=== PATIENT | male | born 1970 | race Caucasian/White ===

== ENCOUNTER → 2024-04-04 08:24 | Day surgery (SDC) | payer OTHER, SELFPAY ==
[2024-04-04] VITALS (10 sets, daily range): BP systolic 92–128; BP diastolic 56–76; BMI 35.9
[2024-04-04 08:54] LABS: Hematocrit 41.2 % (39.0-52.0); Hemoglobin 14.5 g/dL (13.0-18.0); Mean Corp Hgb Conc. 35.2 g/dL (33.0-37.0); Mean Corpuscular Hgb 30.9 pg (27.0-31.0); Mean Corpuscular Volume 87.7 fL (80.0-94.0); Mean Platelet Volume 8.7 fL (7.4-10.4); Platelet Count 250 10^3/uL (130-400); White Blood Cell Count 8.2 10^3/uL (4.8-10.8)
[2024-04-04] MEDS: LOW STRENGTH ASPIRIN 243 MG PO (08:56)
[2024-04-04] MEDS: NSS 336 ML IV (09:06)
[2024-04-04 09:13] LABS: ALT (SGPT) 24 U/L (0-50); AST (SGOT) 25 U/L (17-59); Albumin 4.3 g/dl (3.5-5.0); Alkaline Phosphatase 67 U/L (38-126); Blood Urea Nitrogen 17 mg/dl (9-20); Calcium 8.9 mg/dl (8.4-10.2); Carbon Dioxide 26 mmol/L (22-30); Chloride 105 mmol/L (98-107); Estimated Creatinine Clearance 103 ml/min; Glucose 93 mg/dl (70-99); Potassium 4.3 mmol/L (3.5-5.1); Sodium 142 mmol/L (135-145); eGFR > 60.00
[2024-04-04] MEDS: NSS 1000 IV (12:26)
--- NOTE | 2024-04-04 12:31 | ITS.CL.CATH ---
Operator Receptionist - Catheterization
Cardiac Catheterization
Procedure Report:
CARDIAC CATHETERIZATION REPORT
Date of Procedure: 04/04/2024
Referring: Drew Crawford DO
Indication: Angina with severe aortic stenosis
�
HEMODYNAMIC DATA
AO: 106/65
LV: 193/30
There is a mean gradient of 65 mmHg across the aortic valve
�
LEFT VENTRICULOGRAPHY: Normal segmental wall motion with EF 61%. There is severe calcification of the aortic valve and a strong suggestion of dilation of the ascending aorta with sparing of the aortic root
�
CORONARY ANGIOGRAPHY
Dominance: Right
Left Main: Normal
LAD: Short focal 80% mid LAD stenosis with otherwise trivial luminal irregularities
Circumflex: Normal
RCA: Normal
�
Closure Device: None-the procedure was performed via the right radial artery. The Marito's test was normal prior to the procedure.
�
Radiation (mGy): 295
DAP (cm2.Gy): 23.7
Fluoroscopy time: 4.8 minutes
�
CONCLUSIONS
1:�Critical aortic stenosis with mean gradient 65 mmHg
2:�Normal left ventricular function with EF 61%
3. Dilated ascending aorta�recommend CTA for sizing to determine whether replacement is needed at the time of AVR/CABG
4. Single-vessel CAD with 80% mid LAD stenosis
5. Cardiothoracic surgical consultation has been requested for AVR/CABG x 1 with possible ascending aorta replacement. He will have further discussion with the cardiac surgeon regarding valve choice. Given his young age I suggested he consider
mechanical AVR
�
�
Copy to: Drew Crawford DO, JHON Gaona
�
Mirza Quinones MD, [facility], [facility]
== END | disposition home or self-care (01) ==
LOC: CATH 08:24
PROVIDERS: ATTENDING PHYSICIAN Internal Medicine Cardiovascular Disease; CONSULT PHYSICIAN Thoracic Surgery (Cardiothoracic Vascular Surgery); OTHER PHYSICIAN Internal Medicine Cardiovascular Disease
DX: I35.0 Nonrheumatic aortic (valve) stenosis (principal); I25.119 Atherosclerotic heart disease of native coronary artery with unspecified angina pectoris; I70.0 Atherosclerosis of aorta; Z79.82 Long term (current) use of aspirin
CPT/HCPCS: 80053; 85027; 93458; C1894; Q9967

== ENCOUNTER → 2024-04-11 15:45 | Outpatient (REF) | payer OTHER, SELFPAY | LOC: RAD 15:45 | PROVIDERS: ATTENDING PHYSICIAN Thoracic Surgery (Cardiothoracic Vascular Surgery) | DX: I35.0 Nonrheumatic aortic (valve) stenosis (principal) | CPT/HCPCS: 71275; 74174; Q9967 ==

== ENCOUNTER 2024-04-18 05:00 | Inpatient (IN) | payer OTHER, SELFPAY ==
[2024-04-14 12:05] VITALS: BMI 37.1
[2024-04-14 12:42] LABS: % Basophils 0.8 % (0-2); % Eosinophils 1.7 % (0-6); % Immature Granulocytes 0.6 % (0-0.5); % Lymphocytes 24.5 % (20.5-51.1); % Monocytes 7.9 % (1.7-9.3); % Neutrophils 64.5 % (42.2-75.2); Absolute Basophils 0.1 10^3/uL (0-0.2); Absolute Eosinophils 0.1 10^3/uL (0-0.7); Absolute Immature Granulocytes 0.1 10^3/uL (0-0.05); Absolute Lymphocytes 1.9 10^3/uL (1.2-3.4); Absolute Monocytes 0.6 10^3/uL (0.1-0.6); Absolute Neutrophils 5.1 10^3/uL (1.4-6.5); Hematocrit 41.7 % (39.0-52.0); Hemoglobin 14.7 g/dL (13.0-18.0); Mean Corp Hgb Conc. 35.3 g/dL (33.0-37.0); Mean Corpuscular Hgb 30.9 pg (27.0-31.0); Mean Corpuscular Volume 87.8 fL (80.0-94.0); Mean Platelet Volume 9.1 fL (7.4-10.4); Nucleated Red Blood Cells % 0 % (-); Platelet Count 231 10^3/uL (130-400); Red Blood Cell Count 4.75 10^6/uL (4.70-6.10); White Blood Cell Count 7.9 10^3/uL (4.8-10.8)
[2024-04-14 12:43] LABS: Urine Albumin Negative (Neg - Trace); Urine Bilirubin Negative (Negative); Urine Character Clear (Clear); Urine Color Yellow; Urine Glucose Negative (Negative); Urine Ketone Negative (Negative); Urine Leukocyte Negative (Negative); Urine Nitrite Negative (Negative); Urine Occult Blood Negative (Negative); Urine Specific Gravity 1.015 (<1.030); Urine Urobilinogen 1+ (Neg - 1+)
[2024-04-14 13:16] LABS: ALT (SGPT) 29 U/L (0-50); AST (SGOT) 27 U/L (17-59); Albumin 4.1 g/dl (3.5-5.0); Alkaline Phosphatase 84 U/L (38-126); Blood Urea Nitrogen 17 mg/dl (9-20); Calcium 9.6 mg/dl (8.4-10.2); Carbon Dioxide 30 mmol/L (22-30); Chloride 105 mmol/L (98-107); Estimated Creatinine Clearance 91 ml/min; Glucose 99 mg/dl (70-99); Potassium 4.4 mmol/L (3.5-5.1); Sodium 144 mmol/L (135-145); Total Protein 6.6 g/dl (6.3-8.2); eGFR > 60.00
[2024-04-14 13:39] LABS: Glycohemoglobin (HgbA1c) 5.2 % (4.0-5.6)
--- NOTE | 2024-04-14 14:11 | CM ---
Met with and Mrs. Landis in [facility]'s. He states prior to admission he resides with his spouse in a two story home with two steps to enter. He states he has a full flight of steps to get to bedroom. He has a powder room on the second floor. His
full bathroom is on the first floor. He states prior to admission he was independent with ambulation and adls. He states he does not have any DME in the home. He states he has a prescription plan. His spouse states she will be home for the first
week to assist in his care if needed. The discharge plan is to return home with his spouse and a home visit by the Cardiothoracic Transitional Care Nurse when medically stable.
We reviewed pre-op and post-op routines. We reviewed the shower instructions. He has the soap and the written instructions. He already has The Cardiothoracic Surgery Educational Booklet . We also reviewed restrictions including sternal precautions
and driving restrictions. We discussed a home visit by the Cardiothoracic Transitional Care Nurse. He is agreeable to a home visit. The plan is for AVR/CABG on 04/18/24.
[2024-04-14 15:30] LABS: INR 0.95
[2024-04-14 15:42] LABS: APTT 26.5 Sec (23.4-35.0); PT 12.5 Sec (11.4-14.6)
[2024-04-18] VITALS (25 sets, daily range): BP systolic 94–133; BP diastolic 46–68; BMI 35.8
[2024-04-18] MEDS: LOPRESSOR 25 MG PO (05:33)
[2024-04-18] MEDS: BACTROBAN 2% OINTMENT 1 APPLIC NASAL ×2 (05:33→19:54)
[2024-04-18] MEDS: PROTONIX 40 MG PO (05:33)
[2024-04-18] MEDS: MAGNESIUM OXIDE 500 MG PO (05:34)
--- NOTE | 2024-04-18 06:00 | PTCARENOTE ---
Patient arrived to room 2266 with security guards dispatcher. Patient A+A+Ox3. No neurological deficits noted. Patient ambulates without difficulty. No c/o pain or discomfort. Patient confirmed taking 4% Chlorhexidine shower last night and this morning.
Patient confirmed NPO status. Patient clipped and prepped per protocol. CHG wipes. Second ABO collected and sent. Admission questions and medication reconciliation completed. Pre-Op medications administered. Use and purpose of Heart Pillow
explained. I.S. 4,000ml. Patient's at bedside. Dr. Darnell arrived to speak with patient. call person to CVOR.
--- NOTE | 2024-04-18 06:21 | W.CVOR.SURPR ---
CVOR Surgeon Immed Pre Op
-
I have examined this patient prior to performance of the scheduled procedure.
The patient's condition is unchanged from the time of the dictated/written History and
Physical and the patient is able to undergo the scheduled procedure.
Sternotomy AVR (Mechanical) + GRAY-LAD + PERLA Clip
[2024-04-18 07:35] LABS: ACT+ - POC 96 Seconds (82-134)
[2024-04-18 08:21] LABS: Urine Albumin Negative (Neg - Trace); Urine Bilirubin Negative (Negative); Urine Character Clear (Clear); Urine Color Yellow; Urine Glucose Negative (Negative); Urine Ketone Negative (Negative); Urine Leukocyte Negative (Negative); Urine Nitrite Negative (Negative); Urine Occult Blood Negative (Negative); Urine Urobilinogen Negative (Neg - 1+)
--- NOTE | 2024-04-18 08:38 | CM ---
Reviewed chart. Mr. Landis is in the operating room today. Prior to admission he resides with his spouse in a two story home with two steps to enter. He has a full flight of steps to get to his bedroom. He has a powder room on the first floor. He
has a full bathroom on the first floor. Prior to admission he was independent with ambulation and adls. He does not have any DME in the home. He has a prescription plan .His spouse will be home for the first week when he goes home to assist in his
care if needed. Medical work-up in progress. The discharge plan is return home with his spouse and a home visit [facility] the [facility] when medically stable.
[2024-04-18 09:40] LABS: Glucose - POC 102 mg/dl (70-99); HCO3 - POC 25 mmol/L (21-29); Hematocrit - POC 37 % PCV (42-52); Hemodilution- POC Yes; Hemoglobin Calculated - POC 12.5; Ionized Calcium - POC 1.16 mmol/L (1.12-1.27); PCO2 - POC 48 mmHg (35-45); PO2 - POC 431 mmHg (80-100); POC Comment PRE; Potassium - POC 4.3 mmol/L (3.6-5.0); Sodium - POC 141 mmol/L (135-145); pH - POC 7.33 (7.35-7.45)
[2024-04-18 10:11] LABS: B.E. - POC 3.1 mmol/L; Glucose - POC 123 mg/dl (70-99); HCO3 - POC 28 mmol/L (21-29); Hematocrit - POC 27 % PCV (42-52); Hemodilution- POC Yes; Hemoglobin Calculated - POC 9.1; Ionized Calcium - POC 0.96 mmol/L (1.12-1.27); O2 Saturation %Calculated-POC 99.9 % (92-96); PCO2 - POC 40 mmHg (35-45); PO2 - POC 340 mmHg (80-100); POC Comment CPB; Potassium - POC 6.5 mmol/L (3.6-5.0); Sodium - POC 137 mmol/L (135-145); pH - POC 7.44 (7.35-7.45)
[2024-04-18 10:26] LABS: ACT+ - POC 778 Seconds (82-134)
[2024-04-18 10:37] LABS: B.E. - POC 0.9 mmol/L; Glucose - POC 165 mg/dl (70-99); HCO3 - POC 25 mmol/L (21-29); Hematocrit - POC 31 % PCV (42-52); Hemodilution- POC Yes; Hemoglobin Calculated - POC 10.5; Ionized Calcium - POC 1.01 mmol/L (1.12-1.27); O2 Saturation %Calculated-POC 99.5 % (92-96); PCO2 - POC 36 mmHg (35-45); PO2 - POC 159 mmHg (80-100); POC Comment CPB; Potassium - POC 6.6 mmol/L (3.6-5.0); Sodium - POC 137 mmol/L (135-145); pH - POC 7.44 (7.35-7.45)
[2024-04-18 10:52] LABS: ACT+ - POC 805 Seconds (82-134)
[2024-04-18 11:10] LABS: B.E. - POC -0.6 mmol/L; Glucose - POC 149 mg/dl (70-99); HCO3 - POC 24 mmol/L (21-29); Hematocrit - POC 32 % PCV (42-52); Hemodilution- POC Yes; Ionized Calcium - POC 1.04 mmol/L (1.12-1.27); PCO2 - POC 38 mmHg (35-45); PO2 - POC 363 mmHg (80-100); POC Comment WARM; Potassium - POC 5.5 mmol/L (3.6-5.0); Sodium - POC 139 mmol/L (135-145); pH - POC 7.41 (7.35-7.45)
[2024-04-18 11:12] LABS: ACT+ - POC 104 Seconds (82-134)
[2024-04-18 11:45] LABS: B.E. - POC -2.3 mmol/L; Glucose - POC 124 mg/dl (70-99); HCO3 - POC 24 mmol/L (21-29); Hematocrit - POC 30 % PCV (42-52); Hemodilution- POC Yes; Ionized Calcium - POC 1.32 mmol/L (1.12-1.27); PCO2 - POC 49 mmHg (35-45); PO2 - POC 430 mmHg (80-100); POC Comment POSTH; Potassium - POC 4.6 mmol/L (3.6-5.0); Sodium - POC 141 mmol/L (135-145)
--- NOTE | 2024-04-18 11:46 | W.PN.UPDATE ---
Update Note
Progress Note Update
54-year-old male seen in the office by Dr. Darnell presented electively for a mechanical AVR and a CABG x 1.
IV fluids: 1100
U.O.:� 550
UF:� 1500
Blood:� None
Wires:� A+Ventricular
Inotropes:� None
Pressors:� Levo
Sedatives:� precedex
�
NEURO: sedated on Precedex, pupils +3mm B/L
RESP: #8OT @24cm>/60/5 Lungs clear B/L. 2 mediastinal (15cc on arrival) and R/L pleural (20cc on arrival) chest tubes to -20cm suction. Sanguineous drainage
CV: RRR +S1, S2, no S3, no�rub, no murmur. Dermabond to median sternotomy. RIJ w/[place] locked @ 46cm. PA 25/8 and CVP 4
ABD: round, soft, no BS
EXT: no edema, +2/4 DP pulses B/L, no femoral bruit, left radial A-line intact
: Harding with clear yellow urine
�
A/P: POD #0 s/p CABG x1 and Mechanical AVR #23mm
JADIEL: EF�nml
- wean and extubate
- Monitor CT and urine output
- Follow up labs and CXR
- Wean levophed for maps >65
- Will start ASA tonight
- EKG showed 1st degree AVB
- Eventual coumadin
- Cards consulted
- will need instruction regarding antibiotic prophylaxis for dental and invasive procedures
�
# acute surgical blood loss anemia-expected
- trend CBC
�
# Hyperlipidemia
- resume�statin when tolerating PO
--- NOTE | 2024-04-18 12:00 | PTCARENOTE ---
Received from CVOR at 1200, intubated and sedated; NSR on monitor; Epicardial AV wires present with temporary pacemaker settings VVI 50/9/3; DP and radial pulses present, trace edema noted; Lungs diminished at the bases; ETT size 8 positioned and
secured 24 @ right lip; Ventilator settings Volume A/C 12/550/5/5 FiO2 60%; mediastinal CTx4 to -20 cm wall suction with sanguinous drainage - no air leak, tidaling, or crepitus noted; hypoactive BS, abdomen obese; Harding catheter in place draining
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
--- NOTE | 2024-04-18 12:03 | W.PN.CT.SURG ---
CT Surgery Operative Note
-
CARDIAC SURGERY OPERATIVE REPORT
Preoperative Diagnosis: Bicuspid aortic valve morphology with severe stenosis and mild to moderate degree of insufficiency and single-vessel coronary disease involving the proximal to mid LAD
Postoperative Diagnosis: Same
Procedure(s) Performed:
1. Standard aortic and right atrial cannulation
2. Coronary artery bypass grafting x 1 (In situ GRAY to LAD)
3. Surgical aortic valve replacement with a 23 mm mechanical prosthesis
4. Left atrial appendage ligation [35 mm clip]
5. Placement of temporary atrial ventricular pacing wires
6. Trans-esophageal echocardiography
Date of Surgery: 04/18/24
Comorbidities:
1. Critical aortic valve stenosis with a mean gradient of 74 mmHg and velocity of over 5 m/s
2. Hyperlipidemia
3. Hypertension
4. Nephrolithiasis
5. Bicuspid aortic valve morphology, type 2
6. Morbidly obese with BMI greater than 30
7. Single-vessel coronary disease
Attending Surgeon: Cosme Darnell MD, MS
Assistants: Peace Joel PA-C (present and necessary to first aid officer, endoscopic vein harvest, retraction, suction, exposure, suture management, and wound closure under my direction)
Anesthesiology: Christopher Currie MD and Brendan Tuttle CRNA
Scrub and Circulating RNs: Melony Gayle RN, Logan Robbins RN
Daycare Manager: Amy De Leon CCP
Anesthesia: GETA
EBL: per perfusion records
Products: None, cell saver blood from the field
CPB Time: 100 minutes
Aortic Cross Clamp Time: 80 minutes
Indication(s) for Procedures: This is a 54-year-old male with critical severe aortic valve stenosis with a mean gradient 74 across his valve. He also had single-vessel coronary artery disease. He is symptomatic and so he was referred for surgical
aortic valve replacement with single-vessel coronary artery bypass grafting. Due to his young age, we discussed various types of valves. He ultimately shared decision making was to pursue a surgical aortic valve replacement with mechanical
prosthesis.
Aortic Valve Description: Heavily, heavily calcified leaflets with fusion of the left and right coronary cusp bicuspid valve, type II morphology. Left and right coronary ostia the normal anatomic positions. The calcification extended down to the
annulus particularly towards the noncoronary cusp into the mitral valve insertion point.
Conduit(s) Quality:
GRAY -excellent/skeletonized good visual flow in the LAD territory
Target(s) Quality:
LAD -good quality target/good visual flow in LAD territory upon removal of the bulldog clamp
Findings: LVEF on intraoperative JADIEL was 65% and 65% post procedure with no new regional wall motion abnormalities. He had moderately severe left ventricular hypertrophy pre and post surgery. His aortic valve was fused the left and right coronary
cusp fitting a type II morphology. He had heavy calcification that extended from the leaflet into the annulus. This required extensive debridement. The valve was replaced with a total of 16 nonpledgeted 2 Ethibond sutures placed in inverted
fashion from LVOT through annulus through sewing cuff. It was sized to a 23 mm mechanical prosthesis. This prosthesis was secured into place with core knots. The leaflets were oriented in anti anatomic fashion splitting the left and right
coronary ostia and relatively perpendicular to the anterior leaflet of the mitral valve. Left atrial appendage verified to be free of any thrombus or debris preoperatively and found to be totally occlusive postoperatively with 35 mm clip. There
was no prosthetic PVL or AI, just the inherent washing jets seen on the mechanical prosthesis. Mean gradient across the prosthesis was 11 mmHg. The GRAY was harvested in a skeletonized fashion.
Specimen(s): Aortic valve leaflet.
Prosthesis:
1. 23 mm On-X mechanical valve, serial number: [id number].
2. 35 mm clip, serial #[id number]
Description of Procedure: The patient was taken to the operating room. Their identity and procedure to be performed were verified and they were positioned supine on the operating table. Induction via general anesthesia with endotracheal intubation
was performed and central venous access and arterial monitoring were inserted. A preoperative transesophageal echocardiogram was performed. The patient was then prepped and draped from chin to feet in a sterile fashion. A preoperative time-out was
performed with all members of the team present. A midline chest incision was performed along with median sternotomy along with administration of an initial 5,000 units of IV heparin. A RulTract sternal retractor was positioned to exposure the left
internal mammary bed. The mammary was harvested in a skeletonized fashion and found to have good flow. A bulldog clamp was applied to the distal end of the mammary after dividing it. It was wrapped in a papaverine soaked RayTec and replaced back
into the left hemithorax. The RulTract was exchanged for a median sternal retractor. The innominate vein was isolated. Full heparinization was given (a total of 55,000 units). I created a pericardial well. The aortic cannulation site was chosen
where it was soft, pliable, and free of calcium. Cannulation was performed with an arterial cannula in the ascending aorta and a triple-stage venous cannula through the right atrial appendage. The arterial cannula line had an appropriate bounce and
correlating pressures with test dosing. Next, a root vent/antegrade cannula was inserted into the ascending aorta. The ACT was confirmed to be over 400 and retrograde autologous priming was performed before commencing cardiopulmonary bypass. A 20
LV vent was placed via the right superior pulmonary vein. The pulmonary artery was away from the aorta to facilitate a clamp site. The aortic cross-clamp was placed after decreasing the flow on the bypass and mean arterial pressure. A
total of 1.2L initial dose of antegrade and retrograde Del-Nido cardioplegia solution was given and planned for re-dosing every 75 minutes as necessary. There was rapid electro-mechanical arrest of the heart at 400 cc of cardioplegia. Following
this even of the heart was quiescent, there was still some reactivity with manipulation so an additional dose of retrograde with high potassium solution was given. The left ventricle was observed for distention on echocardiogram and manual
palpation. Cold slush was placed into a sponge and topically on the RV while we systemically cooled to 34 degrees centigrade. The heart was then gently medialized and the left atrial Penders was visualized and clipped accordingly.
I positioned the heart to expose the LAD. A suitable target on the mid/distal left anterior descending was identified. We dissected and prepared the distal target in a similar fashion. We retrieved the GRAY from the chest and created a pericardial
opening while being cognizant of the phrenic nerve to facilitate the course of the mammary. The distal end of the mammary was prepped and beveled to size. We verified orientation and length of the JEAN-PAUL and found brisk flow. An end-to-side anastomosis
was created with a 7-0 prolene. We temporarily released the bulldog clamp on the mammary to inspect flow. Perfusion to the LAD territory was visualized and hemostasis was confirmed. The bull clamp was replaced on the mammary.
Carbon dioxide was used to flood the field. I turned my attention to the aortic valve and manually identified the location of the right coronary take off. An aortotomy was made approximately 1.5cm above the sinotubular junction. The location of both
left and right coronary vessels were visualized in the root. The aortic valve was inspected and found to be heavily calcified. The leaflets were excised and sent for pathological assessment. The annulus was debrided of any calcium. The root and left
ventricular outflow tract were thoroughly irrigated to remove any debris. A total of 16, nonpledgeted 2-0 ethibond annular sutures were placed [id number] circumferentially. These were brought through the sewing cuff of the prosthetic valve which
as then parachuted into place. The left and right coronary ostia were visualized and were unobstructed by the valve. The mechanical leaflets of the valve was inspected using a plastic poker. The leaflets were able to move unobstructed A Cor-Knot
device was used to secure the annular sutures. The valve was inspected and was well seated. The aortotomy was approximated with 4-0 prolene in two layers. At the same time, we started to re-warm to 36.5 degrees centigrade. The bulldog clamp was
removed from the mammary and temporary bipolar ventricular pacing wires were placed on the base of the right ventricle as well as temporary atrial pacing wires at the SVC/RA junction. The patient was placed in a Trendelenburg position and flows on
bypass were lowered. The aortic cross clamp was removed and flows were slowly brought back up. The aortotomy appeared hemostatic. A 30-gauge needle was used to de-air the vein grafts. All bypass grafts were inspected and were free from kinking or
twisting. The distal and proximal anastomoses appeared hemostatic. De-airing maneuvers were performed. Transesophageal echocardiography revealed no paravalvular leak and appropriate prosthetic function. Once de-airing was satisfactory, the left
ventricular and root vents were removed. After verifying acceptable parameters, we initiated weaning from cardiopulmonary bypass. Once we were off cardiopulmonary bypass, the venous cannulas was clamped and removed. A test dose of protamine was
administered and the patient was monitored for any adverse reaction before resuming protamine. Once half of the protamine dose was delivered, pump suckers were turned off and the systolic blood pressure was lowered for aortic decannulation. The
aortic cannula was removed and pursestrings were tied down. All cannulation sites were oversewn with a 4-0 prolene. The aortic line, proximal, and distal coronary anastomoses were hemostatic. The mammary bed was inspected and hemostasis was
confirmed. Once the mediastinum was hemostatic, a 19Fr Epter drain was placed in the left and right pleural cavity and two 24Fr Peter drains were placed within the pericardium. The sternum was approximated with four #7 single and three #8 double
stainless steel wires. Fascia was approximated with #1 vicryl suture. The subcutaneous, dermis and epidermis were closed in layers in a running fashion. The skin wound was cleansed and dressed.
All instrument, sponge, and needle counts were confirmed to be correct x 2 at the end of the operation. The patient was transferred to the cardiac intensive care unit in critical but stable condition.
I, Dr. Cosme Darnell, was present, scrubbed for, and performed all critical elements of this procedure.
Cosme Darnell MD, MS
Cardiothoracic Surgeon
[facility]
This operative dictation was created using the [employer] dictation system. Please excuse any grammatical, typographical, or 'sound alike' errors
[2024-04-18 12:07] LABS: Glucose - Point of Care 107 mg/dl (70-99)
[2024-04-18 12:07] LABS: ACT+ - POC > 1003 Seconds (82-134)
[2024-04-18 12:07] LABS: ACT+ - POC > 1003 Seconds (82-134)
--- NOTE | 2024-04-18 12:10 | W.PN.CD ---
Addendum entered and electronically signed by Robert Lofton MD 04/18/24 15:16:
I saw and examined the patient.
The WEB APPLICATIONS ARCHITECT's note was reviewed and I agree with the note.
Comment: continue post-op care, extubation pending
Original Note:
Today's Communication / Plan
-
Follow telemetry
Postoperative management per CT surgery
Impression / Plan
-
BACKGROUND: 54M with single-vessel CAD and severe aortic stenosis who presents for AVR
Network Operations Center Engineer: Dr. Crawford
Severe aortic stenosis (bicuspid morphology) S/P AVR with 25 mm On-X mechanical valve by Dr. Darnell on 04/18/2024
CAD s/p CABG x 1 (in situ GRAY�LAD)
-LVEF 65% IntraOp, unchanged postoperative without RWMA
-Mean gradient 11 mmHg across prosthesis
-EKG with first-degree AV block
-Requiring low-dose Levophed at 4
-Stable on telemetry, follow
Dyslipidemia, LDL around 150 prior to initiation of atorvastatin
Obesity, BMI 35, he would benefit from weight loss
SUBJECTIVE:
Patient intubated and sedated. Operative notes reviewed.
Physical Exam
Vital Signs/Labs
Vital Signs
Temp Pulse Resp BP Pulse Ox
97.9 F 71 17 133/65 100
04/18/24 05:22 04/18/24 05:33 04/18/24 05:22 04/18/24 05:33 04/18/24 05:22
04/17/24 04/18/24 04/19/24
06:59 06:59 06:59
Actual Weight 111.4 kg
PT 12.5 Sec (11.4-14.6) 04/14/24 12:14
INR 0.95 04/14/24 12:14
APTT 26.5 Sec (23.4-35.0) 04/14/24 12:14
Physical Exam
Constitutional: No acute distress and Comfortable
EENT: Anicteric and Moist mucous membranes
Cardiovascular: Rhythm & rate is regular, Pedal edema is absent and Rub present
Respiratory: Lungs clear to auscul. and Other (Mechanical ventilation)
GI: Soft, Distention absent and Flat
Neuro/Psych: Other (Sedated)
Other: Skin (Warm and dry without edema)
Data Reviewed
-
Date of Service: April 18, 2024
EKG: Report Reviewed by me
Labs: Labs Reviewed by me
Old Records: Reviewed
[2024-04-18 12:16] LABS: B.E. -0.2 mmol/L; HCO3 25.9 mmol/L (21-28); PCO2 48 mmHg (35-48); PO2 154 mmHg (83-108); Potassium 4.3 mMOL/L (3.5-5.1); Sodium 139 mMOL/L (136-145); pH 7.34 (7.35-7.45)
[2024-04-18 12:19] LABS: Hematocrit 29.1 % (39.0-52.0); Hemoglobin 10.5 g/dL (13.0-18.0); Platelet Count 166 10^3/uL (130-400)
[2024-04-18 12:21] LABS: Mixed Venous O2 Saturation 71.5 %
[2024-04-18 12:25] LABS: APTT 27.5 Sec (23.4-35.0); INR 1.46; PT 17.6 Sec (11.4-14.6)
[2024-04-18 12:33] LABS: Blood Urea Nitrogen 19 mg/dl (9-20); Estimated Creatinine Clearance 102 ml/min; Glucose 107 mg/dl (70-99); Magnesium 2.8 mg/dl (1.6-2.3)
[2024-04-18] MEDS: ANCEF 10 IV ×2 (12:43→12:44)
[2024-04-18] MEDS: LIPITOR PO (12:44)
[2024-04-18] MEDS: NEURONTIN PO ×2 (12:44→15:52)
[2024-04-18] MEDS: NSS 500 IV (12:44)
--- NOTE | 2024-04-18 12:44 | CON.INTV ---
Consultation
Consultation Request
Date/Time Consultation Requested: 04/18/2024-12:30 PM
Date/Time Consultation Performed: 04/18/2024-12:30 PM
Requesting Provider: Dr. Darnell
Performing Provider: Dr. Alvarado
Reason for Consultation: Postoperative ventilator/critical care management
Medical History
-
Chief Complaint: Aortic stenosis and CAD
History of Present Illness:
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
04/18/2024. Patient is seen postoperatively intubated and sedated and review of systems was unobtainable. Operative records were reviewed. Case was reviewed with critical care nursing.
Past Medical History
Past Medical History: None (Obesity. Hyperlipidemia. Severe aortic stenosis. Nephrolithiasis. Scoliosis.)
Social History
Tobacco: Smoker (Occasional cigar)
Alcohol: Occasional
Personal:
Living: With Family
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
Occupational Exposures: No known asbestos exposure
Environmental Exposures: No known tuberculosis exposure
Family History
Family History: Other (Father-MVA 35 years old. Mother-diabetes, hypertension and hyperlipidemia.)
Allergies / Home Medications
Allergies
Allergy/AdvReac Type Severity Reaction Status Date / Time
No Known Allergies Allergy Verified 04/13/24 11:54
Home Medications
�Medication �Instructions �Recorded �Confirmed �Last Taken �Type
aspirin 81 mg chewable tablet 81 mg PO DAILY Blood Clot 04/04/24 04/18/24 04/17/24 08:00 History
Prevention/Tx 81 mg
atorvastatin 40 mg tablet 40 mg PO DAILY #90 tabs 04/04/24 04/18/24 04/17/24 08:00 Rx
40 mg
metoprolol succinate 25 mg 25 mg PO DAILY Heart 04/04/24 04/18/24 04/17/24 08:00 History
tablet,extended release 24 hr Disease/Condition 25 mg
nitroglycerin 0.4 mg sublingual 0.4 mg sublingual [id number] PRN 04/04/24 04/18/24 Unknown Rx
tablet chest pain #25 tabs
Review of Systems
-
Unable to Obtain full review of systems at this time due to: Other (Per HPI)
Vitals / Labs / Diagnostic Testing
Vital Signs
Temp Pulse Resp BP Pulse Ox
97.9 F 69 12 133/65 99
04/18/24 05:22 04/18/24 12:05 04/18/24 12:00 04/18/24 05:33 04/18/24 12:05
Lab Data
04/18/24 12:05
Laboratory Results
04/18/24
12:05
PT 17.6 H
INR 1.46
APTT 27.5
pH 7.34 L
pCO2 48
pO2 154 H
HCO3 25.9
O2 Delivery Level
Microbiology
04/14/24 12:14 Nose MRSA Screen - Final
No Methicillin Resistant Staphylococcus aureus isolated.
Diagnostic Testing:
Physical Exam
-
Exam:
Well-nourished and well-developed in no apparent distress
HEENT-atraumatic, normocephalic, oral tracheal intubation
Heart-regular rate and rhythm-no murmurs, rubs or gallops
Chest-clear to auscultation, no wheezes, crackles, median sternotomy bandage is not removed
Abdomen soft nondistended
Extremities-no cyanosis, clubbing, edema and good peripheral pulses
Integument-intact, no rashes, lesions or ecchymosis
Neurologically not alert, not oriented, not moving any of his extremities sedated on a ventilator
Assessment
-
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
04/18/2024.
CAD and severe aortic stenosis
Status post X 1-GRAY-LAD, AVR-23 mm mechanical prosthesis, left atrial appendage ligation
Anemia-hemoglobin 10.5
Mild hyperglycemia
Conditions present prior to admission:
Obesity.
Hyperlipidemia.
Severe aortic stenosis.
Nephrolithiasis.
Scoliosis.
Plan
Ventilator settings reviewed
FiO2 will be weaned
Minute ventilation will be adjusted
Arterial blood gases will be monitored
Spontaneous breathing trial will be attempted with hopeful extubation after anesthesia/sedation wear off
Pulmonary artery catheter parameters will be followed
Pressors/antihypertensive/inotropes/diuretics will be provided as needed
Monitor chest tube output
Monitor hemoglobin
Monitor platelet count and coags
Transfuse blood product if needed
CT surgery following chest tubes
Monitor blood sugar
Insulin drip per protocol
Smoking cessation counseling
Aspiration precautions
VAP prevention protocol
DVT prophylaxis
Early nutrition
Early mobilization
Patient at significant risk for obstructive sleep apnea-loud snoring, neck circumference, obesity, etc.-recommend outpatient sleep apnea/sleep disorders [id number] leave information
Critical care statement: A total of 50 minutes of critical care time was provided for this patient today. This includes management of ventilator, spontaneous breathing trial, arterial blood gases, pressors, of unstable vital signs, evaluation of the
patient at bedside, reviewing the patient's pertinent medical records including radiographs, microbiology, laboratory evaluations, and discussion with primary team and critical care nursing.
Diagnostic data:
Chest x-ray 04/18/2024-endotracheal tube tip above the segun, low lung volumes and probable mild basilar subsegmental atelectasis, no pneumothorax
CT chest abdomen and pelvis 04/11/2024-severe calcification of the aortic valve, contracted gallbladder, scoliosis
IntraOp JADIEL-EF 65%
Catheterization-cardiac 04/04/2024-critical aortic stenosis with mean gradient 65, EF 61%, single-vessel CAD with 80% mid LAD stenosis
Data Reviewed
-
EKG: Report reviewed by me
Radiology: Report reviewed by me
CT Scan: Report reviewed by me
Ultrasound: Report reviewed by me
Medical Tests (Nuc Med, Echo etc): Report reviewed by me
Labs: Labs reviewed by me
Old Records: Reviewed
Critical Care Time (in minutes): 50
[2024-04-18 13:05] LABS: Glucose - Point of Care 146 mg/dl (70-99)
[2024-04-18] MEDS: TYLENOL PO ×2 (13:42→20:39)
[2024-04-18 14:09] LABS: Glucose - Point of Care 146 mg/dl (70-99)
[2024-04-18] MEDS: ALBUMIN 5% 250 IV (14:43)
[2024-04-18 15:03] LABS: B.E. -2.1 mmol/L; HCO3 24.2 mmol/L (21-28); Ionized Calcium 1.16 mMOL/L (1.15-1.33); PCO2 47 mmHg (35-48); PO2 133 mmHg (83-108); Potassium 4.3 mMOL/L (3.5-5.1); pH 7.32 (7.35-7.45)
[2024-04-18 15:04] LABS: Glucose - Point of Care 107 mg/dl (70-99)
[2024-04-18] MEDS: PACERONE PO ×2 (15:52→21:58)
--- NOTE | 2024-04-18 15:57 | RESPNOTE ---
Patient extubated to 6L NC after weaning on 5/5 cpap wean for 30 minutes. No stridor on extubation. Patient able to verbalize name and clear secretions.
[2024-04-18 15:59] LABS: Glucose - Point of Care 125 mg/dl (70-99)
--- NOTE | 2024-04-18 16:00 | PTCARENOTE ---
Patient extubated without issues to 6LNC. No c/o pain presently. at bedside shortly after extubation, questions encouraged. Patient sleeping between care, AOx3 and calm. VSS.
[2024-04-18] MEDS: CALCIUM CHLORIDE 10% SYRINGE 50 ML IV (16:10)
[2024-04-18] MEDS: CALCIUM CHLORIDE 10% SYRINGE 50 MG IV (16:10)
[2024-04-18 16:17] LABS: Hematocrit 30.7 % (39.0-52.0); Hemoglobin 11.1 g/dL (13.0-18.0); Platelet Count 197 10^3/uL (130-400)
[2024-04-18] MEDS: DILAUDID IV (17:07)
[2024-04-18] MEDS: LOW STRENGTH ASPIRIN PO (17:07)
[2024-04-18] MEDS: ZOFRAN 4 MG IV (17:10)
[2024-04-18] MEDS: OFIRMEV 100 IV (17:18)
[2024-04-18 18:04] LABS: Glucose - Point of Care 110 mg/dl (70-99)
[2024-04-18] MEDS: LOW STRENGTH ASPIRIN 81 MG PO (18:04)
[2024-04-18] MEDS: REGLAN 10 MG IV (19:45)
[2024-04-18] MEDS: SODIUM BICARBONATE 50 MEQ IV (19:47)
[2024-04-18] MEDS: ANCEF 5 IV (19:49)
[2024-04-18] MEDS: SENOKOT-S 1 TABLET PO (19:53)
[2024-04-18] MEDS: CALCIUM GLUCONATE 100 IV (19:56)
--- NOTE | 2024-04-18 20:00 | PTCARENOTE ---
Care of patient continued. Ofirmev and Zofran administered around 1700. Calcium repleted. Patient had another episode of nausea around 194, shift leader PA made aware, Reglan ordered. Levophed infusion off for values WNL. Insulin continued per
glycemic protocol. Dilaudid given for 8/10 pain in chest/back. Plan of care discussed with patient and , in agreement. See worklist for details.
[2024-04-18 20:03] LABS: Glucose - Point of Care 127 mg/dl (70-99)
[2024-04-18] MEDS: DILAUDID 0.5 MG IV (20:09)
--- NOTE | 2024-04-18 20:15 | PTCARENOTE ---
Report received from Jane and La Nena, Rambo. Pt assessed. VS recorded. Pt awake, alert, oriented x 4. + Nausea and vomiting. PA made aware by ROBIN Lara. Reglan given per order of PA. Pt on 4L/NC. BBS present. Clear, decreased to B bases. Shallow
breathing at times due to pain. CT x 4, all to -20 cm suction. See flowsheets. Audible heart tones. + pericardial rub. + click from mechanical valve. Pt in SR 70's. AV wires present. VVI, backup rate 50, mA 9, sens 1.5. For pulse and wound
assessments, see flowsheets. CI 1.7. To give 1 amp Sodium bicarb and CaGluconate 2 GM per order of PA. Will continue to monitor CI. Belly soft, obese, nontender. Hypoactive bs x 4. Harding draining clear, yellow urine. Urine and CT output monitored q
1 hr. Glycemic protocol maintained. See VS flowsheet and I/O flowsheet for current gtts. Levo gtt at 2 mcg and titrated per protocol.
--- NOTE | 2024-04-18 21:34 | PTCARENOTE ---
Addendum entered by Jane Christensen RN 04/18/24 22:05:
Addendum, also notified provider of patient's CO/CI at this time, please see flow sheet for data.
Original Note:
Noted the patient's arterial line pressures 110's-120's systolic, systolic BP cuff pressures on RUE 10-12 mmHg lower than arterial line readings. Per night shift manager MAGALIS Lee, titrate BP medications per protocol based on cuff pressures at this time.
Levophed off since approx 1900, see worklist for details.
[2024-04-18] MEDS: NEURONTIN 100 MG PO (21:58)
[2024-04-18 22:01] LABS: Glucose - Point of Care 120 mg/dl (70-99)
[2024-04-19] VITALS (55 sets, daily range): BP systolic 108–149; BP diastolic 54–79; PULSE 82; O2SAT 93–96; BMI 36.0
[2024-04-19] MEDS: DILAUDID 0.5 MG IV ×2 (00:09→04:21)
[2024-04-19 00:29] LABS: Glucose - Point of Care 115 mg/dl (70-99)
--- NOTE | 2024-04-19 00:39 | PTCARENOTE ---
Dilaudid 0.5 mg IV given for 8/10 sternal pain after using IS. Glycemic protocol maintained. Accuchecks now q1 hr. CI done: 2.02. SVR 1147. Going by cuff BP per order of PA. Most recent cuff BP 117/54. Hourly UO and CT outputs recorded.
[2024-04-19] MEDS: DILAUDID 0.25 MG IV (02:20)
[2024-04-19] MEDS: ANCEF 5 IV ×2 (03:00→10:34)
[2024-04-19] MEDS: ROXICODONE 5 MG PO ×4 (03:40→20:47)
[2024-04-19 03:55] LABS: Glucose - Point of Care 108 mg/dl (70-99)
--- NOTE | 2024-04-19 04:00 | DOWNTIME ---
There was a [employer] Client Machinery Repair Maintenance Supervisor Downtime on 04/19/2024 from 0100 to 04/19/2024 at 0355. Downtime documentation of patient's care, including medication administrations, has been reconciled in the electronic record per guidelines. Refer to the
patient's paper chart under the miscellaneous tab to see printed paper medication records and downtime forms.
--- NOTE | 2024-04-19 04:03 | W.PN.INTV ---
Today's Communication / Plan
Recommendations
Tolerated extubation
Wean FiO2
Increase activity
Begin to d
Pressors weaned
If transferred to telemetry-dry cleaning checker will sign off-call pulmonary with respiratory issues
Outpatient sleep disorders evaluation-information will be left on chart at time of discharge for outpatient follow-up
Assessment
-
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
04/18/2024.
CAD and severe aortic stenosis
Status post X 1-GRAY-LAD, AVR-23 mm mechanical prosthesis, left atrial appendage ligation
Anemia-hemoglobin 10.5
Mild hyperglycemia
Conditions present prior to admission:
Obesity.
Hyperlipidemia.
Severe aortic stenosis.
Nephrolithiasis.
Scoliosis.
Plan
Tolerated extubation
Wean FiO2
Encourage incentive spirometry
Increase activity
Aspiration precautions
Pulmonary artery catheter and arterial line will be removed
Pressors have been weaned
Continue to monitor chest tube output
Follow hemoglobin
Continue to follow platelet count and coags
Transfuse blood product as needed
CT surgery following chest tubes as well
Follow blood sugar
Insulin supplementation continues as needed-would likely have insulin drip discontinued
Ongoing smoking cessation counseling
Early nutrition
Early mobilization
DVT prophylaxis
Patient with some snoring, feels tired all the time-recommend outpatient pulmonary/sleep disorders evaluation
Patient will be transferred to telemetry phase-call pulmonary if respiratory issues arise
Reviewed the patient's pertinent medical records including radiographs, microbiology, laboratory evaluations, and discussion with primary team, and critical care nursing.
Diagnostic data:
Chest x-ray 04/18/2024-endotracheal tube tip above the segun, low lung volumes and probable mild basilar subsegmental atelectasis, no pneumothorax
CT chest abdomen and pelvis 04/11/2024-severe calcification of the aortic valve, contracted gallbladder, scoliosis
IntraOp JADIEL-EF 65%
Catheterization-cardiac 04/04/2024-critical aortic stenosis with mean gradient 65, EF 61%, single-vessel CAD with 80% mid LAD stenosis
Subjective Dataa
Subjective Data
Date of Service:
Date of Service: April 19, 2024
Chief Complaint: Boiler Technician Follow Up, Pulmonary Follow Up and Vent Management Follow Up
Subjective:
Tolerated extubation, no complaints of shortness of breath, pain controlled, pressors weaned, chest tubes not dumping
Review of Systems
General: Other (Per HPI)
Objective Data
Data Reviewed
Vital Signs / I&O / Oxygen:
Vital Signs
Temp Pulse Resp BP Pulse Ox
98.1 F 79 12 117/54 98
04/19/24 00:34 04/19/24 00:34 04/19/24 00:34 04/19/24 00:34 04/19/24 00:34
Intake and Output
04/17/24 04/18/24 04/19/24
06:59 06:59 06:59
Intake Total 1379.6 / 1379.6
Output Total 1130 / 1130
Balance 249.6 / 249.6
SaO2 [CPAP/PSV] 99
SaO2 [A/C] 100
SaO2 98
Nasal Cannula flow liters per 4
minute
Physical Exam
General: Respiratory Distress (n) and Comfortable
HEENT: Normocephalic, Anicteric and Moist Mucous Membranes
Cardiovascular: Regular Rhythm
Respiratory: Wheeze (n), Crackles (n), Rhonchi (n), Non-Labored Respirations, Accessory Resp Muscle Use (n) and Stridor
GI: Soft, Non Distended and Non Tender
Neurology: Awake, Alert and No Motor Deficits
Skin: Warm, Good Color, Cyanosis (n), Jaundice (n) and Rash (n)
Labs/Micro/Reports
Laboratory Results
04/18/24 04/18/24
12:05 14:51
PT 17.6 H
INR 1.46
APTT 27.5
pH 7.34 L 7.32 L
pCO2 48 47
pO2 154 H 133 H
HCO3 25.9 24.2
O2 Delivery Level
--- NOTE | 2024-04-19 04:04 | W.PN.CT ---
Today's Communication / Plan
-
Plan:
-No major issues overnight. Hemodynamically and neurologically intact
-Successfully extubated on 04/18/24 @ 1600
-Weaned off Levophed gtt overnight, remains on insulin gtt per protocol
-Last CI 2.07, MVO2 69.3%, u/o since OR 940 mL
-D/C'd a-line and swan @ 0540
-D/C'd garcia catheter @ 0600
-Will transfer to [facility] phase today once of insulin
-Monitor chest tube drainage: 2med 175/330, R/L pleurals 40/180
-EKG c/w acute pericarditis (+rub), will administer Toradol 15 mg IV x 3. Will consider adding colchicine
-Cont. current meds (ASA, Plavix, Amiodarone, Lopressor if BP permits, Lipitor)
-Maintain cordis
-Maintain temporary PW (will pull likely tomorrow)
-Wean off of O2 as tolerated
-Encourage use of IS
-OOB into chair/Ambulate
Assessment / Plan
-
Assessment:
-S/p Sternotomy/CABG x 1 (In situ GRAY to LAD)/ AVR (23 mm mechanical prosthesis)/Left atrial appendage ligation [35 mm clip], by Dr. Darnell, 04/18/24, pod#1
-Severe critical
-Single vessel CAD (80% mid LAD)
-[place]
-LVEF 60%
-HTN
-HLD
-Class 2 obesity (BMI 37.1)
-Probable UVALDO, loud snoring
-Active tobacco abuse
-Nephrolithiasis
-OA
-Scoliosis/back pain
-DJD
-Acute postop blood loss/Anemia (stable without transfusion)
-Acute postop atelectasis
-Acute postop hypovolemia with subsequent hypervolemia
-Acute postop pericarditis (+rub)
Discussed patient care with: Cardiology, Nursing, Respiratory Therapy, Pharmacy and Care Team
Subjective
Procedure
-S/p Sternotomy/CABG x 1 (In situ GRAY to LAD)/ AVR (23 mm mechanical prosthesis)/Left atrial appendage ligation [35 mm clip], by Dr. Darnell, 04/18/24
-
Date of Service: April 19, 2024
Pt c/o incisional pain, otherwise feels well
Objective Data
-
PT 17.6 Sec (11.4-14.6) H 04/18/24 12:05
INR 1.46 04/18/24 12:05
APTT 27.5 Sec (23.4-35.0) 04/18/24 12:05
Vital Signs
Vital Signs
Temp Pulse Resp BP Pulse Ox
98.1 F 79 12 117/54 98
04/19/24 00:34 04/19/24 00:34 04/19/24 00:34 04/19/24 00:34 04/19/24 00:34
CT Intake/Output/Weight
04/18/24 04/18/24 04/19/24
06:59 18:59 06:59
Intake Total 888.3 / 1379.6 491.3 / 1379.6
Output Total 750 / 1130 380 / 1130
Balance 138.3 / 249.6 111.3 / 249.6
SaO2: 98 (2L)
Physical Exam
-
General: Awake, Oriented and AOx3
Cardiovascular: Regular rate & rhythm, No Murmurs, Rub and No Gallop
Respiratory: Decreased Breath Sounds (at bases, otherwise clear)
Sternum: Stable
Incision: Clean, Dry, Intact and Dressing Intact
Extremities: Other (+trace edema)
Data Reviewed
-
Lab Results: Results Reviewed
Medications: Active Meds Reviewed
Chest X-Ray: Report Reviewed and Image Reviewed
ECG: Report Reviewed and Image Reviewed
[2024-04-19 04:29] LABS: Mixed Venous O2 Saturation 69.3 %
[2024-04-19 04:36] LABS: INR 1.09; PT 13.9 Sec (11.4-14.6)
[2024-04-19 04:39] LABS: Hematocrit 29.7 % (39.0-52.0); Hemoglobin 10.5 g/dL (13.0-18.0); Mean Corp Hgb Conc. 35.4 g/dL (33.0-37.0); Mean Corpuscular Volume 87.6 fL (80.0-94.0); Mean Platelet Volume 9.2 fL (7.4-10.4); Platelet Count 195 10^3/uL (130-400); Red Blood Cell Count 3.39 10^6/uL (4.70-6.10); Red Cell Dist. Width 13.2 % (11.5-14.5); White Blood Cell Count 13.8 10^3/uL (4.8-10.8)
[2024-04-19 04:59] LABS: Blood Urea Nitrogen 23 mg/dl (9-20); Carbon Dioxide 26 mmol/L (22-30); Chloride 107 mmol/L (98-107); Estimated Creatinine Clearance 102 ml/min; Glucose 105 mg/dl (70-99); Magnesium 2.1 mg/dl (1.6-2.3); Potassium 4.6 mmol/L (3.5-5.1); Sodium 143 mmol/L (135-145); eGFR > 60.00
[2024-04-19] MEDS: TORADOL 15 MG IV ×2 (05:32→14:13)
[2024-04-19] MEDS: TYLENOL 1000 MG PO ×3 (05:33→22:20)
--- NOTE | 2024-04-19 06:30 | PTCARENOTE ---
Labs, EKG, CXR done this am. See MAR for pain medication given. CI > 2.0 overnight. MVO2 ~69. PA aware of all hemodynamics, outputs. Orders given to deline pt. Pt Leonard d/c'ed, L radial A line d/c'ed per CVICU protocol. Indwelling urinary catheter
d/c'ed at 0605. Pt assisted up to standing scale to be weighed then to recliner chair. Pt normotensive throughout transfer to scale and chair.
[2024-04-19 06:40] LABS: Glucose - Point of Care 126 mg/dl (70-99)
[2024-04-19 06:40] LABS: Glucose - Point of Care 117 mg/dl (70-99)
[2024-04-19] MEDS: ZOFRAN 4 MG IV (07:21)
[2024-04-19 08:18] LABS: Glucose - Point of Care 107 mg/dl (70-99)
[2024-04-19 08:20] LABS: Glucose - Point of Care 114 mg/dl (70-99)
[2024-04-19 08:20] LABS: Glucose - Point of Care 115 mg/dl (70-99)
--- NOTE | 2024-04-19 08:30 | PTCARENOTE ---
received pt from shift superintendent nurse. pt resting in chair during time of assessment. pt AAOx3, NSR per tele HR 80s, A/V wires set to VVI 50 9 1.5, +rub & click auscultated, palpable pulses, b/l trace edema, pox 97% 4L NC, CT x4 serosanguineous
drainage, no air leak/ crepitus, hypoactive bs, pt complaining of nausea, zofran given, dtv post garcia removal, sternal incision approx., [place], CT c/d/i, L rad wrist 4x4 c/d/i, RIJ cordis infusing KVO, piv infusing insulin per protocol, plan of care
discussed and questions encouraged.
--- NOTE | 2024-04-19 08:52 | W.PN.CD ---
Today's Communication / Plan
-
- Supportive post op care.
- PO meds including ASA, Plavix, AMiodarone and Lipitor.
- Required Levophed until last night - probably can start Metoprolol from tomorrow.
- Colchicine for pericarditis.
Impression / Plan
-
BACKGROUND: 54M with single-vessel CAD and severe aortic stenosis who presents for AVR
Clipper Machine: Dr. Crawford
Severe aortic stenosis (bicuspid morphology) S/P AVR with 25 mm On-X mechanical valve by Dr. Darnell on 04/18/2024
CAD s/p CABG x 1 (in situ GRAY�LAD)
-LVEF 65% IntraOp, unchanged postoperative without RWMA
-AVR - Mean gradient 11 mmHg across prosthesis
-EKG with first-degree AV block and pos top pericarditis
-Colchicine and NSAIDS as tolerated.
-Off the Levophed now
-Extubated on 04/18
-Stable on telemetry, follow
- OOB to chair
- Chest tubes / Mediastinal tubes with decreasing output.
- Temp pacing wires in place. no sign of pacing need.
Dyslipidemia, LDL around 150 prior to initiation of atorvastatin
Obesity, BMI 35, he would benefit from weight loss
SUBJECTIVE:
Extubated and doing well post op. OOB to chair. Off pressors.
Physical Exam
Vital Signs/Labs
Vital Signs
Temp Pulse Resp BP Pulse Ox
98.3 F 82 16 148/68 98
04/19/24 08:00 04/19/24 07:45 04/19/24 08:00 04/19/24 08:00 04/19/24 08:23
04/18/24 04/19/24 04/20/24
06:59 06:59 06:59
Actual Weight 111.4 kg 112.3 kg
04/19/24 08:15
04/19/24 04:13
PT 13.9 Sec (11.4-14.6) 04/19/24 04:13
INR 1.09 04/19/24 04:13
APTT Cancelled 04/19/24 08:15
Magnesium 2.1 mg/dl (1.6-2.3) 04/19/24 04:13
Physical Exam
Constitutional: No acute distress and Comfortable
EENT: Anicteric and Moist mucous membranes
Cardiovascular: Rhythm & rate is regular, Pedal edema is absent and JVD present
Respiratory: Respiratory effort normal, Lungs clear to auscul. and Crackles Absent
GI: Soft, Distention absent, Non tender and Normal bowel sounds
Neuro/Psych: Alert, Oriented and AO x 3
Data Reviewed
-
Date of Service: April 19, 2024
Medical Decision Making: Reviewed Test Results, Independent Historian Assessment, Test Interpretation and Review of Case with other Provider
EKG: Tracing Personally Visualized and interpreted
Echo: Report Reviewed by me
X-Ray/CT/US/MRI/NUC/PET: Image Personally Visualized and interpreted
Labs: Labs Reviewed by me
Old Records: Reviewed
Critical Care Time (in minutes): 32
[2024-04-19] MEDS: BACTROBAN 2% OINTMENT 1 APPLIC NASAL ×2 (09:25→20:45)
[2024-04-19] MEDS: PACERONE 200 MG PO ×3 (09:26→22:20)
[2024-04-19] MEDS: PLAVIX 75 MG PO (09:26)
[2024-04-19] MEDS: COLCHICINE 0.3 MG PO (09:26)
[2024-04-19] MEDS: MAGNESIUM OXIDE 500 MG PO ×2 (09:26→20:46)
[2024-04-19] MEDS: PROTONIX 40 MG PO (09:27)
[2024-04-19] MEDS: LIDOCAINE 4% PATCH TOPICAL (09:27)
[2024-04-19] MEDS: NEURONTIN 100 MG PO ×3 (09:27→22:20)
[2024-04-19] MEDS: LOW STRENGTH ASPIRIN 81 MG PO (09:27)
[2024-04-19] MEDS: SENOKOT-S 1 TABLET PO ×2 (09:27→20:46)
[2024-04-19] MEDS: LOPRESSOR 12.5 MG PO ×2 (09:27→20:45)
[2024-04-19] MEDS: LIPITOR 40 MG PO (09:27)
[2024-04-19 09:28] LABS: APTT 26.4 Sec (23.4-35.0)
[2024-04-19] MEDS: FLEXERIL 5 MG PO ×2 (09:33→20:46)
[2024-04-19 10:10] LABS: Glucose - Point of Care 140 mg/dl (70-99)
[2024-04-19] MEDS: HEPARIN 25000 UNITS/250 ML IV (10:34)
[2024-04-19 12:10] LABS: Glucose - Point of Care 124 mg/dl (70-99)
[2024-04-19] MEDS: NSS IV (12:36)
--- NOTE | 2024-04-19 12:45 | PTCARENOTE ---
pt VSS, pt oriented, SR on the monitor. HR 70-80s. A&V wires, VVI 50/9. +click, +rub. SBP 110-130s. palpable pulses. pt on RA, 94% POX. lungs diminished. IS encouraged. CTx4, no air leak or crepitus noted. pt placed back to bed, L pleural CT dc'd as
ordered w/ no issue. unable to dc R pleural CT d/ t resistance, PRODUCTION DEPARTMENT SUPERVISOR and Dr. Darnell at bedside to remove, dressing c/d/i. diet tolerated. denies n/v. sternal incision TRISTON, approximated. L radial site c/d/i. RIJ cordis maintained. PIV. insulin gtt dc'd.
heparin gtt on hold per PRODUCTION DEPARTMENT SUPERVISOR. see worklist for VS, I&O, and assessment.
--- NOTE | 2024-04-19 13:34 | W.PN.ANS.POP ---
Anesthesia Post Operative
- Anesthesia Post Op Note
Vital Signs Stable-See Nursing Note: Yes
Airway Patent: Yes
Adequate Pain Control: Yes
Change in Mental Status: No
Current Postoperative Nausea & Vomiting: No
Anesthesia Complications: No
General Anesthetic Recall: No
Unplanned Admission: No
Post Op Hydration Adequate: Yes
[2024-04-19] MEDS: FERRLECIT 110 MG IV (14:14)
--- NOTE | 2024-04-19 14:25 | CM ---
Reviewed chart, Met with Mr. Landis to review discharge plans. He states he is feeling tired. Prior to admission he resides with his spouse in a two story home with two steps to enter. He has a full flight of steps to get to bedroom and powder
room. He full bathroom is on the first floor. Prior to admission he was independent with ambulation and adls. He does not have any DME in the home. His spouse will be home for the first week to assist in is care if needed. Medical work-up in
progress. The discharge plan is to return home with her spouse and a home visit by the Transitional Care Nurse when medically stable.
--- NOTE | 2024-04-19 16:00 | PTCARENOTE ---
pt VSS, no changes in assessment. pt OOB in chair. IS encouraged. family at bedside. STRUCTURAL ARCHITECT aware of positional RIJ cordis.
[2024-04-19 16:35] LABS: APTT 30.9 Sec (23.4-35.0)
--- NOTE | 2024-04-19 17:04 | W.PN.UPDATE ---
Update Note
Progress Note Update
Patient has not required pacing wires. There has been no bradycardia, arrhythmias, complete heart block, or significant pauses.
Site was cleansed with CHG thoroughly
1 atrial and 1 ventricular epicardial pacing wires were pulled.. Bedrest x1 hour and VS [id number] x 4.
Carisa FERREIRA
Cardiac Surgery
--- NOTE | 2024-04-19 17:06 | PTCARENOTE ---
SERVICE MEMBER aware of PTT, SERVICE MEMBER at bedside, A&V wires pulled by SERVICE MEMBER. q15 VSS completed.
--- NOTE | 2024-04-19 20:45 | PTCARENOTE ---
Report received from ROBIN Lacy. Walking rounds done. VS done. Pt helped back to bed per request. Awake, alert, oriented x 4. Speech clear. Equal extremity strength x 4. Pt on 2L/NC on chair. In bed, Sats 91% on 2L/NC. O2 increased to 4L/NC. Pt c/o
moderate pain to sternum. Flexeril 5 mg and Roxicodone 5 mg given at 2045 for pain. CDB and IS encouraged. IS peak 1000 mls. Audible heart tones. + click and + pericardial rub auscultated. Mediastinal CTs x 2 to -20 cm suction, draining red SSG
drainage. For pulse and wound assessments, see flowsheets. SBP 140's. Scheduled metoprolol and pain medications given. Ongoing monitoring of BP. Pt in SR. Belly soft, obese. Normoactive bs x 4. Reports passing some flatus. Voids clear, yellow urine
in urinal. Pt given CHG bath. Gown and linens changed. at bedside. MAGALIS Gage at bedside to examine pt. Ongoing plan of care for pt.
[2024-04-19] MEDS: XANAX 0.25 MG PO (22:42)
[2024-04-19] MEDS: OCEAN, SALINE MIST 2 SPRAYS NASAL (22:51)
--- NOTE | 2024-04-19 23:02 | PTCARENOTE ---
Pt called to RN stating he feels increased anxiety. He feels his nasal mucosa is dry and also feels he is unable to swallow. Pt requested his nasal cannula to be temporarily out. Pt helped up to standing, voided 125 mls clear, yellow urine, then
helped to recliner chair. MAGALIS Gage at bedside. Xanax 0.25 mg po given at 2242 for anxiety. Pt states he has had Xanax in the past for episodes of anxiety. Saline nasal spray provided for pt. Pt pregers to remain in recliner chair for now. Pt
allowed RN to place O2 cannula back into nares. Sats 94-95% on 4L/NC in chair. Remains in SR, 70's. Reports sternal pain mild, 3/10. Ongoing plan of care.
[2024-04-20] VITALS (10 sets, daily range): BP systolic 115–146; BP diastolic 52–69; PULSE 79; O2SAT 94–95; BMI 36.2
[2024-04-20] MEDS: ROXICODONE 5 MG PO ×3 (03:56→21:54)
--- NOTE | 2024-04-20 04:00 | PTCARENOTE ---
Labs drawn and sent. Pt helped to standing to void 225 mls clear, yellow urine in urinal. Pt then weighed on standing scale. Pt assisted back to bed. VS done and recorded. Roxicodone 5 mg po given for 7.10 sternal pain.
[2024-04-20 04:31] LABS: Hematocrit 25.6 % (39.0-52.0); Hemoglobin 8.8 g/dL (13.0-18.0); Mean Corp Hgb Conc. 34.4 g/dL (33.0-37.0); Mean Corpuscular Hgb 30.2 pg (27.0-31.0); Mean Platelet Volume 9.6 fL (7.4-10.4); Platelet Count 180 10^3/uL (130-400); Red Blood Cell Count 2.91 10^6/uL (4.70-6.10); Red Cell Dist. Width 13.4 % (11.5-14.5); White Blood Cell Count 14.3 10^3/uL (4.8-10.8)
[2024-04-20 05:02] LABS: Blood Urea Nitrogen 35 mg/dl (9-20); Calcium 8.3 mg/dl (8.4-10.2); Carbon Dioxide 28 mmol/L (22-30); Chloride 102 mmol/L (98-107); Estimated Creatinine Clearance 94 ml/min; Glucose 127 mg/dl (70-99); Magnesium 2.3 mg/dl (1.6-2.3); Potassium 4.6 mmol/L (3.5-5.1); Sodium 139 mmol/L (135-145); eGFR > 60.00
[2024-04-20] MEDS: TYLENOL 1000 MG PO ×3 (06:29→19:56)
--- NOTE | 2024-04-20 06:50 | W.PN.CT ---
Today's Communication / Plan
-
-pod #2
-had anxiety/ panic attack last night- better after Xanax. No other issues, no complaints
-CT output: 2 meds: 120/305 in 12/24 hrs
-?Heparin/Coumadin for mechanical AVR
-current meds (ASA, Plavix, Lipitor, Lopressor, Amio, Colchicine Protonix)
-encourage IS, OOB
Assessment / Plan
-
Assessment:
-S/p Sternotomy/CABG x 1 (In situ GRAY to LAD)/ AVR (23 mm mechanical prosthesis)/Left atrial appendage ligation [35 mm clip], by Dr. Darnell, 04/18/24, pod#2
-Severe critical
-Single vessel CAD (80% mid LAD)
-USA
-LVEF 60%
-HTN
-HLD
-Class 2 obesity (BMI 37.1)
-Probable UVALDO, loud snoring
-Active tobacco abuse
-Nephrolithiasis
-OA
-Scoliosis/back pain
-DJD
-Acute postop blood loss/Anemia (stable without transfusion)
-Acute postop atelectasis
-Acute postop hypovolemia with subsequent hypervolemia
-Acute postop pericarditis (+rub)
Discussed patient care with: Nursing and Care Team
Subjective
Procedure
-S/p Sternotomy/CABG x 1 (In situ GRAY to LAD)/ AVR (23 mm mechanical prosthesis)/Left atrial appendage ligation [35 mm clip], by Dr. Darnell, 04/18/24
-
Date of Service: April 20, 2024
Objective Data
-
Lab Results
04/20/24 04:10
04/20/24 04:10
PT 13.9 Sec (11.4-14.6) 04/19/24 04:13
INR 1.09 04/19/24 04:13
APTT Cancelled 04/19/24 16:30
Vital Signs
Vital Signs
Temp Pulse Resp BP Pulse Ox
98.7 F 76 15 136/64 96
04/20/24 04:12 04/20/24 04:12 04/20/24 04:12 04/20/24 04:12 04/20/24 04:12
CT Intake/Output/Weight
04/19/24 04/19/24 04/20/24
06:59 18:59 06:59
Intake Total 651.3 / 1539.6 182.5 / 282.5 100 / 282.5
Output Total 688 / 1438 495 / 965 470 / 965
Balance -36.7 / 101.6 -312.5 / -682.5 -370 / -682.5
SaO2: 96
Physical Exam
-
General: Awake and AOx3
Cardiovascular: Regular rate & rhythm, No Murmurs and Rub
Respiratory: Rales (at bases b/l) and Decreased Breath Sounds
Sternum: Stable
Incision: Clean, Dry and Intact
Extremities: Other (trace edema b/l)
Data Reviewed
-
Lab Results: Results Reviewed
Medications: Active Meds Reviewed
Chest X-Ray: Report Reviewed and Image Reviewed
ECG: Report Reviewed and Image Reviewed
--- NOTE | 2024-04-20 08:00 | PTCARENOTE ---
pt oriented, SR on the monitor. HR 70-80s. +click, +rub. SBP 120s. palpable pulses. pt on RA, 93% POX. lungs diminished. IS encouraged. CTx2, no air leak or crepitus noted. diet tolerated. denies n/v. pt OOB in chair. voids in urinal. sternal
incision TRISTON, approximated. chest tube site c/d/i. L radial site c/d/i. RIJ cordis maintained. PIV. PTT drawn, Heparin gtt restarted per order. see worklist for VS, I&O, and assessment.
--- NOTE | 2024-04-20 08:36 | W.PN.CD ---
Today's Communication / Plan
-
resume AC when able for [facility] valve; encourage incentive spirometry
Impression / Plan
-
BACKGROUND: 54M with single-vessel CAD and severe aortic stenosis who presents for AVR
Firing Pin Gauger: Dr. Crawford
Severe aortic stenosis (bicuspid morphology) S/P AVR with 25 mm On-X mechanical valve by Dr. Darnell on 04/18/2024
CAD s/p CABG x 1 (in situ GRAY�LAD)
-LVEF 65% IntraOp, unchanged postoperative without RWMA
-AVR - Mean gradient 11 mmHg across prosthesis
-EKG with first-degree AV block and possible pericarditis, chest pain, improved on cholchicine
-Stable on telemetry, follow
-OOB to chair
-Chest tubes / Mediastinal tubes with decreasing output, out today?
-pacing wires out 04/19
-will need to resume heparin[facility]far[facility]
-currently ASA/Plavix
-cont. metop
-cont. preventative amio
Hb drop - 8.8 from 10.5, trend in afternoon, so signs of worsening bleeding or increased drain output, likely redistributive
Dyslipidemia, LDL around 150 prior to initiation of atorvastatin, cont. atorva
Obesity, BMI 35, he would benefit from weight loss
SUBJECTIVE:
Extubated and doing well post op. OOB to chair. Chest pain improved. Off pressors.
Physical Exam
Vital Signs/Labs
Vital Signs
Temp Pulse Resp BP Pulse Ox
36.7 C 87 16 120/52 93
04/20/24 07:55 04/20/24 08:00 04/20/24 07:55 04/20/24 07:46 04/20/24 07:55
04/19/24 04/20/24 04/21/24
06:59 06:59 06:59
Actual Weight 112.3 kg 112.8 kg
04/20/24 04:10
04/20/24 04:10
PT 13.9 Sec (11.4-14.6) 04/19/24 04:13
INR 1.09 04/19/24 04:13
APTT 29.0 Sec (23.4-35.0) 04/20/24 07:50
Magnesium 2.3 mg/dl (1.6-2.3) 04/20/24 04:10
Physical Exam
Constitutional: No acute distress
Cardiovascular: Rhythm & rate is regular, Pedal edema is absent, JVD pressure is normal, Systolic murmur absent and Diastolic murmur absent
Respiratory: Respiratory effort normal
Neuro/Psych: AO x 3
Data Reviewed
-
Date of Service: April 20, 2024
Medical Decision Making: Reviewed Test Results
EKG: Tracing Personally Visualized and interpreted
X-Ray/CT/US/MRI/NUC/PET: Image Personally Visualized and interpreted
Labs: Labs Reviewed by me
[2024-04-20] MEDS: SENOKOT-S 1 TABLET PO ×2 (09:13→19:55)
[2024-04-20] MEDS: PROTONIX 40 MG PO (09:13)
[2024-04-20] MEDS: LOW STRENGTH ASPIRIN 81 MG PO (09:14)
[2024-04-20] MEDS: FLEXERIL 5 MG PO (09:14)
[2024-04-20] MEDS: LOPRESSOR 12.5 MG PO ×2 (09:14→19:56)
[2024-04-20] MEDS: MAGNESIUM OXIDE 500 MG PO ×2 (09:14→19:55)
[2024-04-20] MEDS: LIPITOR 40 MG PO (09:14)
[2024-04-20] MEDS: PLAVIX 75 MG PO (09:14)
[2024-04-20] MEDS: NEURONTIN 100 MG PO ×3 (09:14→19:55)
[2024-04-20] MEDS: BACTROBAN 2% OINTMENT 1 APPLIC NASAL ×2 (09:15→19:57)
[2024-04-20] MEDS: LIDOCAINE 4% PATCH 1 PATCH TOPICAL (09:15)
[2024-04-20] MEDS: COLCHICINE 0.3 MG PO (09:15)
[2024-04-20] MEDS: PACERONE 200 MG PO ×3 (09:15→19:56)
[2024-04-20] MEDS: NSS IV (09:27)
--- NOTE | 2024-04-20 12:45 | PTCARENOTE ---
Addendum entered by Bambi Valdez RN 04/20/24 13:48:
Roxicodone 5mg PO PRN given for pain.
Original Note:
pt VSS, no changes in assessment. PTT drawn, PA aware of result. heparin gtt running per orders. pt placed back to bed, PA aware of CT output.
[2024-04-20 13:18] LABS: APTT 33.1 Sec (23.4-35.0)
--- NOTE | 2024-04-20 15:57 | PTCARENOTE ---
pt VSS, no changes in assessment. PA aware of CT output. pt placed back to bed. Med CTs dc'd as ordered. dressing c/d/i.
[2024-04-20] MEDS: FERRLECIT 110 MG IV (16:02)
[2024-04-20] MEDS: COUMADIN 5 MG PO (17:53)
--- NOTE | 2024-04-20 20:00 | PTCARENOTE ---
assumed care of patient @ 1900. received pt sitting in chair, Aox3. mild c/o pain 08/14, will try tylenol only for pain at this time. NSR HR 70s, + click. +pulses, - edema. BP 130s/60s. Lungs clear, diminished on room air satting mid 90s. mild MILLARD.
Reportedly poor appetite. Belly soft, normoactive. Voiding in urinal. Sternal TRISTON CDI, CT dressing CDI. R IJ cordis with KVO is positional but patent. L AC PIV patent. heparin at 700 u/hr. assisted pt to walk to nurses station and back to bed. now
resting comfortably with call araujo within reach .
[2024-04-20 20:10] LABS: APTT 56.1 Sec (23.4-35.0)
--- NOTE | 2024-04-20 23:00 | PTCARENOTE ---
pox 88 on RA while sleeping, placed on 2L NC. pt had BM in bathroom. no other change in assessment .
[2024-04-21] VITALS (8 sets, daily range): BP systolic 118–151; BP diastolic 64–76; PULSE 83; O2SAT 98–99; BMI 36.3
--- NOTE | 2024-04-21 03:00 | PTCARENOTE ---
labs drawn and sent. pt has been to and from bathroom several times with gas. pt states he hasn't slept at all. alexa 5 given for pain. no other change in assessment. call araujo within reach .
[2024-04-21 03:20] LABS: Hematocrit 22.8 % (39.0-52.0); Hemoglobin 7.9 g/dL (13.0-18.0); Mean Corp Hgb Conc. 34.6 g/dL (33.0-37.0); Mean Corpuscular Hgb 29.9 pg (27.0-31.0); Mean Corpuscular Volume 86.4 fL (80.0-94.0); Mean Platelet Volume 9.1 fL (7.4-10.4); Platelet Count 169 10^3/uL (130-400); Red Blood Cell Count 2.64 10^6/uL (4.70-6.10); Red Cell Dist. Width 13.5 % (11.5-14.5)
[2024-04-21] MEDS: ROXICODONE 5 MG PO ×2 (03:26→08:41)
[2024-04-21 03:30] LABS: APTT 42.2 Sec (23.4-35.0); INR 1.17; PT 14.9 Sec (11.4-14.6)
[2024-04-21 03:41] LABS: Blood Urea Nitrogen 25 mg/dl (9-20); Calcium 7.9 mg/dl (8.4-10.2); Carbon Dioxide 31 mmol/L (22-30); Chloride 102 mmol/L (98-107); Estimated Creatinine Clearance > 125 ml/min; Glucose 104 mg/dl (70-99); Magnesium 2.3 mg/dl (1.6-2.3); Potassium 4.2 mmol/L (3.5-5.1); Sodium 138 mmol/L (135-145); eGFR > 60.00
--- NOTE | 2024-04-21 05:38 | W.PN.CT ---
Today's Communication / Plan
-
-pod #3
-no issues overnight, has trouble sleeping
-on iv Heparin for mechanical AVR. PTT 42.2 (goal 40-60)
-Coumadin started on 04/20- got 5 mg. INR today 1.17
-? d/c Plavix
-current meds (ASA, Plavix, Coumadin, Lipitor, Lopressor, Amio, Colchicine, Protonix)
-encourage IS, OOB
Assessment / Plan
-
Assessment:
-S/p Sternotomy/CABG x 1 (In situ GRAY to LAD)/ AVR (23 mm mechanical prosthesis)/Left atrial appendage ligation [35 mm clip], by Dr. Darnell, 04/18/24, pod#3
-Severe critical
-Single vessel CAD (80% mid LAD)
-[place]
-LVEF 60%
-HTN
-HLD
-Class 2 obesity (BMI 37.1)
-Probable UVALDO, loud snoring
-Active tobacco abuse
-Nephrolithiasis
-OA
-Scoliosis/back pain
-DJD
-Acute postop blood loss/Anemia (stable without transfusion)
-Acute postop atelectasis
-Acute postop hypovolemia with subsequent hypervolemia
-Acute postop pericarditis (+rub)- on Colchicine
Discussed patient care with: Nursing and Care Team
Subjective
Procedure
-S/p Sternotomy/CABG x 1 (In situ GRAY to LAD)/ AVR (23 mm mechanical prosthesis)/Left atrial appendage ligation [35 mm clip], by Dr. Darnell, 04/18/24
-
Date of Service: April 21, 2024
Objective Data
-
Lab Results
04/21/24 03:05
04/21/24 03:05
PT 14.9 Sec (11.4-14.6) H 04/21/24 03:05
PT Cancelled 04/21/24 03:05
INR 1.17 04/21/24 03:05
INR Cancelled 04/21/24 03:05
APTT 42.2 Sec (23.4-35.0) H 04/21/24 03:05
Vital Signs
Vital Signs
Temp Pulse Resp BP Pulse Ox
98.7 F 75 21 141/71 99
04/21/24 03:00 04/21/24 03:00 04/21/24 03:00 04/21/24 02:59 04/21/24 03:00
CT Intake/Output/Weight
04/20/24 04/20/24 04/21/24
06:59 18:59 06:59
Intake Total 100 / 282.5 170 / 793 623 / 793
Output Total 470 / 965 420 / 420
Balance -370 / -682.5 -250 / 373 623 / 373
SaO2: 99
Physical Exam
-
General: Awake and AOx3
Cardiovascular: Regular rate & rhythm, No Murmurs and Rub
Respiratory: Decreased Breath Sounds
Sternum: Stable
Incision: Clean, Dry and Intact
Extremities: Other (trace edema b/l)
Data Reviewed
-
Lab Results: Results Reviewed
Medications: Active Meds Reviewed
Chest X-Ray: Report Reviewed and Image Reviewed
ECG: Report Reviewed and Image Reviewed
[2024-04-21] MEDS: LOW STRENGTH ASPIRIN 81 MG PO (08:25)
[2024-04-21] MEDS: LIPITOR 40 MG PO (08:25)
[2024-04-21] MEDS: PROTONIX 40 MG PO (08:25)
[2024-04-21] MEDS: NEURONTIN 100 MG PO ×3 (08:25→19:45)
[2024-04-21] MEDS: KCL 20 MEQ PO (08:26)
[2024-04-21] MEDS: LOPRESSOR 12.5 MG PO (08:26)
[2024-04-21] MEDS: SENOKOT-S 1 TABLET PO (08:26)
[2024-04-21] MEDS: MAGNESIUM OXIDE 500 MG PO ×2 (08:26→19:45)
[2024-04-21] MEDS: COLCHICINE 0.3 MG PO (08:26)
[2024-04-21] MEDS: PACERONE 200 MG PO ×3 (08:27→19:46)
[2024-04-21] MEDS: LASIX 40 MG IV (08:27)
[2024-04-21] MEDS: CALCIUM GLUCONATE 100 IV (08:28)
[2024-04-21] MEDS: TYLENOL PO (08:28)
[2024-04-21] MEDS: LIDOCAINE 4% PATCH 1 PATCH TOPICAL (08:41)
--- NOTE | 2024-04-21 08:48 | W.PN.CD ---
Today's Communication / Plan
-
increase metoprolol
stop plavix when warfarin therapuetic
Impression / Plan
-
BACKGROUND: 54M with single-vessel CAD and severe aortic stenosis who presents for AVR
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 Crawford
Severe aortic stenosis (bicuspid morphology) S/P AVR with 25 mm On-X mechanical valve by Dr. Darnell on 04/18/2024
CAD s/p CABG x 1 (in situ GRAY�LAD)
-LVEF 65% IntraOp, unchanged postoperative without RWMA
-AVR - Mean gradient 11 mmHg across prosthesis
-EKG with first-degree AV block and possible pericarditis, chest pain, improved on cholchicine--continue for 3 months
-OOB to chair
-pacing wires out 04/19
-will need to start warfarin for mech valve
-currently ASA/Plavi--can drop plavix with INR therapuetic
-cont. metop
-cont. preventative amio
HTN: will increase metorpolol to 25bid
Dyslipidemia, LDL around 150 prior to initiation of atorvastatin, cont. atorva
Obesity, BMI 35, he would benefit from weight loss
SUBJECTIVE:
chest is tight but ambulating without issue
Physical Exam
Vital Signs/Labs
Vital Signs
Temp Pulse Resp BP Pulse Ox
98.7 F 86 18 151/67 97
04/21/24 03:00 04/21/24 08:27 04/21/24 07:53 04/21/24 08:27 04/21/24 07:53
04/20/24 04/21/24 04/22/24
06:59 06:59 06:59
Actual Weight 112.8 kg 113 kg
04/21/24 03:05
04/21/24 03:05
PT 14.9 Sec (11.4-14.6) H 04/21/24 03:05
PT Cancelled 04/21/24 03:05
INR 1.17 04/21/24 03:05
INR Cancelled 04/21/24 03:05
APTT 42.2 Sec (23.4-35.0) H 04/21/24 03:05
Magnesium 2.3 mg/dl (1.6-2.3) 04/21/24 03:05
Physical Exam
Constitutional: No acute distress
Cardiovascular: Rhythm & rate is regular, Pedal edema is absent, JVD pressure is normal and Systolic murmur absent
Respiratory: Respiratory effort normal, Lungs clear to auscul., Wheeze Absent, Crackles Absent and Rhonchi Absent
Neuro/Psych: AO x 3
Data Reviewed
-
Date of Service: April 21, 2024
EKG: Other (sinus)
[2024-04-21] MEDS: TOPROL XL 12.5 MG PO (09:34)
[2024-04-21] MEDS: BACTROBAN 2% OINTMENT 1 APPLIC NASAL ×2 (09:35→19:47)
--- NOTE | 2024-04-21 10:08 | PTCARENOTE ---
Rec'd pt this shift awake and alert in bed. Pt on IV heparin at 700 units/hr. AM meds given. Pt NSR on monitor. Pt ambulating in and out of the bathroom, tolerated well. See worklist for VS/I and O and assessments.
--- NOTE | 2024-04-21 11:15 | CM ---
Reviewed chart. Met with Mr. Landis to review discharge plans. He states he is feeling better. He states he has been walking in the room. We reviewed a home visit by the Transitional Care Nurse The transitional Care Nurse will do his first blood
draw for his INR. Results go to Dr. Crawford office. He is agreeable to a home visit. Prior to admission he resides with his spouse in a two story home with two steps to enter. He has a full flight of steps to get to bedroom and powder room. His
full bathroom is on the first floor. Prior to admission he was independent with ambulation and adls. He does not have any DME in the home. He has a prescription plan. His spouse will be home for the first week to assist in his care if needed.
Medical work-up in progress. The discharge plan is to return home with his spouse and a home visit by the Transitional Care Nurse when medically stable.
[2024-04-21] MEDS: NSS IV (12:32)
[2024-04-21] MEDS: HEPARIN 25000 UNITS/250 ML IV (12:38)
[2024-04-21] MEDS: PLAVIX 75 MG PO (12:54)
[2024-04-21] MEDS: FERRLECIT 110 MG IV (14:20)
[2024-04-21] MEDS: TYLENOL 1000 MG PO ×2 (14:20→19:45)
--- NOTE | 2024-04-21 15:24 | PTCARENOTE ---
Pt OOB up in chair for meals. Pt ambulating in room, in and out of bathroom, tolerated well.
[2024-04-21] MEDS: COUMADIN 7.5 MG PO (17:27)
[2024-04-21 18:46] LABS: APTT 60.4 Sec (23.4-35.0)
[2024-04-21] MEDS: LOPRESSOR 25 MG PO (19:44)
[2024-04-21] MEDS: SENOKOT-S PO (19:47)
--- NOTE | 2024-04-21 21:07 | PTCARENOTE ---
assumed care of patient @ 1900. received pt sitting in chair, AOX3. VSS on RA. mild c/o pain 2/10 in sternum, pt wants Tylenol only currently. NSR in the 70s. +PP, +1 b/l LE edema. Lungs clear, diminished at the bases. Belly soft, normoactive.
Voiding clear yellow urine in urinal. All surgical incisions CDI. PIV patent. assisted pt walk 1 lap around unit, now resting comfortably in bed with call araujo within reach .
[2024-04-22] VITALS (12 sets, daily range): BP systolic 101–128; BP diastolic 62–75; PULSE 72; O2SAT 96–100; BMI 35.7
--- NOTE | 2024-04-22 | PTCARENOTE ---
pt resting comfortably, no change in assessment
[2024-04-22 01:17] LABS: APTT 178.1 Sec (23.4-35.0)
--- NOTE | 2024-04-22 04:08 | W.PN.CT ---
Addendum entered and electronically signed by Eliezer Blackmon MD 04/22/24 08:55:
I saw and examined the patient.
The PA's note was reviewed and I agree with the note.
Comment:
POD#4 s/p mechanical AVR/CHERI to LAD
No major overnight events. AVSS. Sinus.
Coumadin (5, 7.5), INR this AM is pending (1.17 yesterday) - continue heparin gtt
ASA/plavix - will D/C plavix when INR is 1.6
OOB/IS/ambulate
Original Note:
Today's Communication / Plan
-
-pod #4
-no issues overnight
-on iv Heparin for mechanical AVR. PTT pending
-Coumadin started on 04/20- got 5, 7.5 mg. INR today pending
-will d/c Plavix when INR > 1.[address] Darnell
-current meds (ASA, Plavix, Coumadin, Lipitor, Lopressor, Amio, Colchicine, Protonix)
-encourage IS, OOB, ambulate
Assessment / Plan
-
Assessment:
-S/p Sternotomy/CABG x 1 (In situ GRAY to LAD)/ AVR (23 mm mechanical prosthesis)/Left atrial appendage ligation [35 mm clip], by Dr. Darnell, 04/18/24, pod#4
-Severe critical
-Single vessel CAD (80% mid LAD)
-[place]
-LVEF 60%
-HTN
-HLD
-Class 2 obesity (BMI 37.1)
-Probable UVALDO, loud snoring
-Active tobacco abuse
-Nephrolithiasis
-OA
-Scoliosis/back pain
-DJD
-Acute postop blood loss/Anemia (stable without transfusion)
-Acute postop atelectasis
-Acute postop hypovolemia with subsequent hypervolemia
-Acute postop pericarditis (+rub)- on Colchicine
Discussed patient care with: Nursing and Care Team
Subjective
Procedure
-S/p Sternotomy/CABG x 1 (In situ GRAY to LAD)/ AVR (23 mm mechanical prosthesis)/Left atrial appendage ligation [35 mm clip], by Dr. Darnell, 04/18/24
-
Date of Service: April 22, 2024
Objective Data
-
PT 14.9 Sec (11.4-14.6) H 04/21/24 03:05
PT Cancelled 04/21/24 03:05
INR 1.17 04/21/24 03:05
INR Cancelled 04/21/24 03:05
APTT 178.1 Sec (23.4-35.0) H* 04/22/24 00:41
Vital Signs
Vital Signs
Temp Pulse Resp BP Pulse Ox
98.6 F 74 20 111/64 97
04/21/24 20:00 04/22/24 03:00 04/22/24 00:00 04/22/24 00:48 04/22/24 00:48
CT Intake/Output/Weight
04/21/24 04/21/24 04/22/24
06:59 18:59 06:59
Intake Total 623 / 793 657 / 1137 480 / 1137
Output Total 600 / 600
Balance 623 / 373 57 / 537 480 / 537
SaO2: 97
Physical Exam
-
General: Awake and AOx3
Cardiovascular: Regular rate & rhythm, No Murmurs and Rub
Respiratory: Decreased Breath Sounds
Sternum: Stable
Incision: Clean, Dry and Intact
Abdomen: soft, nondistended, nontender, + BM
Extremities: Other (trace edema b/l)
Data Reviewed
-
Lab Results: Results Reviewed
Medications: Active Meds Reviewed
Chest X-Ray: Report Reviewed and Image Reviewed
ECG: Report Reviewed and Image Reviewed
--- NOTE | 2024-04-22 04:30 | PTCARENOTE ---
labs drawn and sent, alexa 5 given for pain, call araujo within reach .
[2024-04-22] MEDS: ROXICODONE 5 MG PO (05:15)
[2024-04-22] MEDS: TYLENOL 1000 MG PO ×3 (05:15→23:02)
[2024-04-22 05:29] LABS: Hematocrit 23.8 % (39.0-52.0); Hemoglobin 8.1 g/dL (13.0-18.0); Mean Corpuscular Hgb 29.9 pg (27.0-31.0); Mean Corpuscular Volume 87.8 fL (80.0-94.0); Mean Platelet Volume 9.2 fL (7.4-10.4); Platelet Count 219 10^3/uL (130-400); Red Blood Cell Count 2.71 10^6/uL (4.70-6.10); Red Cell Dist. Width 13.5 % (11.5-14.5)
[2024-04-22 05:38] LABS: Blood Urea Nitrogen 22 mg/dl (9-20); Calcium 7.7 mg/dl (8.4-10.2); Carbon Dioxide 29 mmol/L (22-30); Chloride 100 mmol/L (98-107); Estimated Creatinine Clearance > 125 ml/min; Glucose 96 mg/dl (70-99); Magnesium 2.3 mg/dl (1.6-2.3); Potassium 3.9 mmol/L (3.5-5.1); Sodium 136 mmol/L (135-145); eGFR > 60.00
--- NOTE | 2024-04-22 08:10 | W.PN.CD ---
Today's Communication / Plan
-
-Warfarin started first dose on 04/20/2024�INR is pending.
-Continue aspirin Plavix with 3 dose warfarin tonight.
-On colchicine and amiodarone for pericarditis
Impression / Plan
-
BACKGROUND: 54M with single-vessel CAD and severe aortic stenosis who presents for AVR s/p mechanical AVR, single vessel CABG and Left atrial appendage ligation.
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 Crawford
Severe aortic stenosis (bicuspid morphology) S/P AVR with 25 mm On-X mechanical valve by Dr. Darnell on 04/18/2024
CAD s/p CABG x 1 (in situ GRAY�LAD)
-LVEF 65% IntraOp, unchanged postoperative without RWMA
-AVR - mechanical - Mean gradient 11 mmHg across prosthesis -INR is pending - warfarin started.
-EKG with first-degree AV block and possible pericarditis, chest pain, improved on colchicine--continue for 3 months
-s/p Left atrial appendage ligation -35 mm clip
-OOB to chair
-pacing wires out 04/19
-On warfarin for mech valve
-currently ASA/Plavi--can drop plavix with INR therapeutic (>1.5)
-cont. metop
-cont. preventative amio
HTN:
- increased metorpolol to 25bid
Dyslipidemia, LDL around 150 prior to initiation of atorvastatin, cont. atorva
Obesity, BMI 35, he would benefit from weight loss
SUBJECTIVE:
Doing well postop. Chest pain is improved.
Physical Exam
Vital Signs/Labs
Vital Signs
Temp Pulse Resp BP Pulse Ox
98.5 F 81 18 103/64 96
04/22/24 04:30 04/22/24 05:00 04/22/24 04:30 04/22/24 04:49 04/22/24 04:30
04/21/24 04/22/2424
06:59 06:59 06:59
Actual Weight 113 kg 111.3 kg
04/22/24 04:48
04/22/24 04:48
PT 14.9 Sec (11.4-14.6) H 04/21/24 03:05
PT Cancelled 04/21/24 03:05
INR 1.17 04/21/24 03:05
INR Cancelled 04/21/24 03:05
APTT 178.1 Sec (23.4-35.0) H* 04/22/24 00:41
Magnesium 2.3 mg/dl (1.6-2.3) 04/22/24 04:48
Physical Exam
Constitutional: No acute distress and Comfortable
EENT: Anicteric and Moist mucous membranes
Cardiovascular: Rhythm & rate is regular, Pedal edema is absent, JVD pressure is normal and Systolic murmur absent
Respiratory: Respiratory effort normal, Lungs clear to auscul. and Crackles Absent
GI: Soft, Non tender and Normal bowel sounds
Neuro/Psych: Alert, Oriented and AO x 3
Data Reviewed
-
Date of Service: April 22, 2024
Medical Decision Making: Reviewed Test Results, Independent Historian Assessment, Test Interpretation and Review of Case with other Provider
EKG: Tracing Personally Visualized and interpreted
Echo: Report Reviewed by me
Labs: Labs Reviewed by me
Old Records: Reviewed
Critical Care Time (in minutes): 32
--- NOTE | 2024-04-22 09:15 | PTCARENOTE ---
Received from restaurant shift supervisor RN; AAOx3, responds spontaneously to RN and follows commands; VSS; NSR on monitor; Radial and DP pulses present; Lungs diminished at bases; Patient states he has been having diarrhea - scheduled laxative held; Urinating in
bathroom; Surgical sites intact; PIVx2; Heparin gtt infusing - see nursing flowsheets for further details; See nursing documentation for further information.
[2024-04-22] MEDS: PROTONIX 40 MG PO (09:21)
[2024-04-22] MEDS: PLAVIX 75 MG PO (09:21)
[2024-04-22] MEDS: MAGNESIUM OXIDE 500 MG PO ×2 (09:21→19:49)
[2024-04-22] MEDS: LOPRESSOR 25 MG PO ×2 (09:22→19:49)
[2024-04-22] MEDS: PACERONE 200 MG PO ×3 (09:22→23:02)
[2024-04-22] MEDS: LIPITOR 40 MG PO (09:22)
[2024-04-22] MEDS: NEURONTIN 100 MG PO ×3 (09:22→23:02)
[2024-04-22] MEDS: LOW STRENGTH ASPIRIN 81 MG PO (09:22)
[2024-04-22] MEDS: BACTROBAN 2% OINTMENT 1 APPLIC NASAL (09:22)
[2024-04-22] MEDS: SENOKOT-S PO ×3 (09:22→19:50)
[2024-04-22] MEDS: LIDOCAINE 4% PATCH TOPICAL (09:23)
[2024-04-22] MEDS: COLCHICINE 0.3 MG PO (09:25)
[2024-04-22 10:20] LABS: INR 2.57; PT 27.5 Sec (11.4-14.6)
[2024-04-22 10:21] LABS: APTT 66.5 Sec (23.4-35.0)
--- NOTE | 2024-04-22 12:11 | W.PN.CD ---
Addendum entered and electronically signed by Dariela Suarez MD 04/22/24 12:18:
I personally evaluated and examined the patient. I agree with the assessment and documentation, examination and plan of care as noted below.
Briefly, 54-year-old gentleman with single-vessel coronary disease and severe aortic stenosis status post single-vessel coronary artery bypass graft and mechanical aortic valve. Patient started on warfarin for mechanical aortic valve. Continue
aspirin and Plavix. Once INR is more than 2.5, we can stop aspirin Plavix.
Original Note:
Today's Communication / Plan
-
Continue ambulation
CXR pending
Impression / Plan
-
BACKGROUND: 54M with single-vessel CAD and severe aortic stenosis who presents for AVR s/p mechanical AVR, single vessel CABG and Left atrial appendage ligation.
Site Administrator: Dr. Crawford
Severe aortic stenosis (bicuspid morphology) S/P AVR with 25 mm On-X mechanical valve by Dr. Darnell on 04/18/2024
CAD s/p CABG x 1 (in situ GRAY�LAD)
-LVEF 65% IntraOp, unchanged postoperative without RWMA
-AVR (mechanical) - Mean gradient 11 mmHg across prosthesis
-EKG with first-degree AV block and possible pericarditis, chest pain, improved on colchicine--continue for 3 months
-s/p Left atrial appendage ligation -35 mm clip
-OOB to chair
-pacing wires out 04/19
-On warfarin for [facility] valve, - INR 2.5 today
-Currently ASA, Plavix stopped (INR >1.5)
-Cont. metop & preventative amio
HTN, increased metoprolol to 25 BID
Dyslipidemia, LDL around 150 prior to initiation of atorvastatin, cont. atorvastatin
Obesity, BMI 35, he would benefit from weight loss
SUBJECTIVE:
Doing well postop. Ambulating the halls.
Physical Exam
Vital Signs/Labs
Vital Signs
Temp Pulse Resp BP Pulse Ox
98.1 F 81 16 103/64 98
04/22/24 09:25 04/22/24 05:00 04/22/24 09:25 04/22/24 04:49 04/22/24 09:25
04/21/24 04/22/24 04/23/24
06:59 06:59 06:59
Actual Weight 113 kg 111.3 kg
04/22/24 04:48
04/22/24 04:48
PT 27.5 Sec (11.4-14.6) H 04/22/24 09:57
INR 2.57 04/22/24 09:57
APTT Cancelled 04/22/24 12:00
Magnesium 2.3 mg/dl (1.6-2.3) 04/22/24 04:48
Physical Exam
Constitutional: No acute distress and Comfortable
EENT: Anicteric and Moist mucous membranes
Cardiovascular: Rhythm & rate is regular, Pedal edema is absent and S1S2 is normal
Respiratory: Respiratory effort normal and Lungs clear to auscul.
GI: Soft, Distention absent, Flat, Non tender and Normal bowel sounds
Neuro/Psych: AO x 3
Other: Skin (warm and dry)
Data Reviewed
-
Date of Service: April 22, 2024
--- NOTE | 2024-04-22 12:15 | PTCARENOTE ---
IV heparin gtt discontinued after results of PT/INR; 2 View CXR taken and completed; Ambulating and completed stairs with cardiac rehab.
[2024-04-22] MEDS: KCL 20 MEQ PO (13:18)
--- NOTE | 2024-04-22 17:00 | PTCARENOTE ---
Coumadin dose to be held tonight due to INR lab from earlier today - will recheck in AM; Patient showered with CHG; Ambulating independently in room
--- NOTE | 2024-04-22 20:00 | PTCARENOTE ---
Assumed care of patient at 1900. Patient found in bed at time of assessment. Patient is AOx4, follows commands appropriately, moves all extremities. Lung sounds are diminished at the bases, saO2 99% on RA. Heart sounds have a regular rate and
rhythm, patient is SR on the monitor, there is a click audible on auscultation, no edema is noted and all pulses are palpable. Patient has active BS, +BM, voids independently. R AC PIV and L AC PIV present for intermittent infusion. VSS. No c/o
pain.
[2024-04-22] MEDS: MELATONIN 5 MG PO (23:02)
--- NOTE | 2024-04-23 | PTCARENOTE ---
Patient reassessed. VSS. Remains SR on the monitor.
[2024-04-23 04:14] VITALS: BP 111/68
[2024-04-23 04:50] LABS: INR 2.66; PT 28.2 Sec (11.4-14.6)
--- NOTE | 2024-04-23 05:27 | PTCARENOTE ---
Patient reassessed. VSS. Remains SR on the monitor. AM labs obtained. Leaking noted on L AC PIV site discontinued. No c/o pain. Patient stable.
--- NOTE | 2024-04-23 06:49 | W.PN.CT ---
Addendum entered and electronically signed by Eliezer Blackmon MD 04/23/24 09:18:
I saw and examined the patient.
The PA's note was reviewed and I agree with the note.
Comment:
DC Home today
INR 2.66 (from 2.5; s/p coumadin 5, 7.5, 0) - coumadin 2.5mg tonight
Original Note:
Today's Communication / Plan
-
-pod #5
-no issues overnight
-Coumadin started on 04/20- got 5, 7.5, 0 mg. INR today 2.66
-current meds (ASA, Coumadin, Lipitor, Lopressor, Amio, Colchicine, Protonix)
-encourage IS, OOB, ambulate
-possible d/c home
Assessment / Plan
-
Assessment:
-S/p Sternotomy/CABG x 1 (In situ GRAY to LAD)/ AVR (23 mm mechanical prosthesis)/Left atrial appendage ligation [35 mm clip], by Dr. Darnell, 04/18/24, pod#5
-Severe critical
-Single vessel CAD (80% mid LAD)
-[place]
-LVEF 60%
-HTN
-HLD
-Class 2 obesity (BMI 37.1)
-Probable UVALDO, loud snoring
-Active tobacco abuse
-Nephrolithiasis
-OA
-Scoliosis/back pain
-DJD
-Acute postop blood loss/Anemia (stable without transfusion)
-Acute postop atelectasis
-Acute postop hypovolemia with subsequent hypervolemia
-Acute postop pericarditis (+rub)- on Colchicine
Discussed patient care with: Nursing and Care Team
Subjective
Procedure
-S/p Sternotomy/CABG x 1 (In situ GRAY to LAD)/ AVR (23 mm mechanical prosthesis)/Left atrial appendage ligation [35 mm clip], by Dr. Darnell, 04/18/24
-
Date of Service: April 23, 2024
Objective Data
-
Lab Results
04/22/24 04:48
04/22/24 04:48
PT 27.5 Sec (11.4-14.6) H 04/22/24 09:57
INR 2.57 04/22/24 09:57
APTT Cancelled 04/22/24 12:00
Vital Signs
Vital Signs
Temp Pulse Resp BP Pulse Ox
98.6 F 76 20 110/65 97
04/22/24 23:00 04/23/24 01:00 04/22/24 23:00 04/22/24 23:06 04/22/24 23:00
CT Intake/Output/Weight
04/22/24 04/22/24 04/23/24
06:59 18:59 06:59
Intake Total 480 / 1137 760 / 760
Balance 480 / 537 760 / 760
SaO2: 97
Physical Exam
-
General: Awake and AOx3
Cardiovascular: Regular rate & rhythm, No Murmurs and Rub
Respiratory: Decreased Breath Sounds
Sternum: Stable
Incision: Clean, Dry and Intact
Abdomen: soft, nondistended, nontender, + BM
Extremities: Other (trace edema b/l)
Data Reviewed
-
Lab Results: Results Reviewed
Medications: Active Meds Reviewed
Chest X-Ray: Report Reviewed and Image Reviewed
ECG: Report Reviewed and Image Reviewed
[2024-04-23] MEDS: TYLENOL 1000 MG PO (07:16)
[2024-04-23 07:39] VITALS: BP 123/66
--- NOTE | 2024-04-23 08:00 | PTCARENOTE ---
Patient received from brand director oob in chair, ambulating ad carlos alberto. NSR via cm, SaO2 @ 100% on RA. All procedural sites stable. MAGALIS Joel in room, patient updated to plan of care including pending d/c this am, patient in agreement. See work list
for full assessment and interventions performed.
[2024-04-23] MEDS: PROTONIX 40 MG PO (08:10)
[2024-04-23] MEDS: COLCHICINE 0.3 MG PO (08:10)
[2024-04-23] MEDS: TOPROL XL 50 MG PO (08:10)
[2024-04-23] MEDS: MAGNESIUM OXIDE 500 MG PO (08:10)
[2024-04-23] MEDS: PACERONE 200 MG PO (08:10)
[2024-04-23] MEDS: NEURONTIN 100 MG PO (08:10)
[2024-04-23] MEDS: LIPITOR 40 MG PO (08:11)
[2024-04-23] MEDS: LOW STRENGTH ASPIRIN 81 MG PO (08:11)
[2024-04-23] MEDS: SENOKOT-S PO (08:22)
[2024-04-23] MEDS: LIDOCAINE 4% PATCH TOPICAL (08:22)
[2024-04-23 08:47] VITALS: BMI 35.6
--- NOTE | 2024-04-23 08:47 | W.DCSUMMARY ---
Discharge Summary
Discharge Data
Date of Admission: 04/18/24
Date of Discharge: 04/23/24
-
Pending Results: No
Hospital Course
Primary care physician: JHON Castro
Outpatient buildings painter: Drew Crawford
Inpatient consultants: [facility]
Procedures:
1. 04/18/24 mechanical aortic valve replacement with #23 On-X valve, CABG x1 (GRAY-LAD), exclusion of left atrial appendage with #35 clip
Primary Diagnosis:
1. severe aortic stenosis and severe aortic regurgitation
2. single vessel coronary artery disease
3. Exertional chest pain and pressure
Secondary Diagnoses:
1. Hypertension
2. Hyperlipidemia
3. Class II obesity
4. Suspected obstructive sleep apnea
5. Current tobacco abuse
6. History of nephrolithiasis
7. Osteoarthritis
8. Scoliosis
9. Postoperative pericarditis, on colchicine x 2 more weeks
10. Postoperative acute blood loss anemia, stable
HPI: Patient is a 54-year-old male who has been worked up as an outpatient for known progressive aortic stenosis. Most recent echo now demonstrates severe AAS with moderate to severe AI, aortic valve area of 0.69 with a preserved EF of 60 to 65%.
Subsequent left heart catheterization was scheduled which demonstrated single-vessel coronary artery disease of the mid LAD. After all preoperative workup was completed he was deemed a suitable candidate for AVR and CABG x 1.
Hospital course: Patient was brought in electively on 04/18/2024 where he underwent a mechanical AVR with 23 mm On-X valve with CABG x 1 (GRAY-LAD) by Dr. Cosme Darnell without any perioperative complications. He was transferred to CVICU per
protocol on Levophed at 4. He extubated later that afternoon without incident. On postop day 1 temporary pacing wires were pulled and chest tubes were discontinued. he was continued on aspirin and Plavix and beta-jhony. On postop day 2 he was
started on a heparin drip for his mechanical valve, 5 mg of Coumadin given that night. He continues to progress well with ambulation. On postop day 3 he was given IV Lasix and Cordis was discontinued without incident. He was given Coumadin 7.5 mg
that evening. On postop day 4 his INR was 2.56, from 1.17 the day before. Heparin drip and Plavix were stopped Coumadin held that evening. Patient kept in house 1 more day for INR check. On postop day 5 he remains in sinus rhythm with good sats
on room air. Two-view chest x-ray demonstrates no significant abnormalities. His INR is 2.67, he was instructed to take 2.5 mg of Coumadin that evening. Patient was discharged to home with close follow-up with the transitional care nurse from [facility]. He should have an INR checked on Tuesday 04/24, and further Coumadin dosing to be determined based on results and managed by Dr. Crawford's office.
Home medication changes: Toprol XL has been increased from 25 mg daily to 50 mg daily. New prescription provided for 2 more weeks of colchicine for postop pericarditis, new prescription for warfarin for his mechanical valve--instructed to take
2.5mg on 04/23 with INR check 04/24. INR goal of 2.0-3.0 for the first 3 months, with reduction to INR goal of 1.5-2.0 thereafter. New Rx for oxycodone PRN surgical pain.
Discharge Plan
-
Patient Disposition: Home (Routine Discharge)
Discharge Diagnosis/Procedures: aortic stenosis/CAD s/p mechanical AVR + CABG x1 (GRAY-LAD)
Condition: Good
Diet: Low Fat and Low Cholesterol
Activity: No strenuous activity
Driving Restrictions: Not until seen by your Dr
Bathing Restrictions: OK to Shower
Blood Work: have INR checked on Tuesday 04/24, warfarin (coumadin) dosing TBD based on result
Other Services: Cardiac Rehab
Specialty Instructions: Weigh Daily- Call MD for wt gain/loss 3 lbs overnight/5 lbs in 1 week
Activity Restrictions/Additional Instructions:
ACTIVITY:
-No strenuous activity: no heavy lifting, pushing, pulling anything over 15 pounds for one month
-continue to use stairs as tolerated
DRIVING RESTRICTIONS:
-No driving for one month or until approved by your surgeon
WOUND CARE:
-Shower daily. Use soap & water.
-No lotions, creams or powders on incision area.
DIET:
-continue a low fat/low cholesterol diet.
-IF you are diabetic, continue carb controlled diet.
CARDIAC REHAB:
-Please make appointment to start in 5-6 weeks with your local hospital program. (See Cardiac Rehabilitation Discharge Booklet).
SPECIALTY INSTRUCTIONS:
-Weigh yourself daily. Call your physician for any weight gain/loss of 3 lbs overnight or 5 lbs in one week.
-REPORT any clicking noise or uneven appearance of your sternum to your surgeon immediately.
-If you smoke, you are instructed to quit. The [place] smoking hotline phone number is [phone]
Referrals:
CT Transitional Care Nurse [Outside]
[facility] [Outside] - 05/26/24 1:00 pm
(Cardiac Rehab Orientation appointment is on 05/26/24 at 1:00 pm
The Cardiac Rehab gym is located on the first floor of the [facility].)
Augusta Soler CRNP [Family Provider] - in four to six weeks (Please make an appointment in four to six weeks.)
Drew Crawford DO [Non-Admitting Privileges] - 05/30/24 11:40 am (Your appointment on April has been cancelled .)
Xavier Alvarado MD [Active] - in two to four weeks (Obstructive sleep apnea workup)
Cosme Darnell MD [Active] - 05/25/24 12:45 pm
Prescriptions:
New
acetaminophen 325 mg Tablet
650 mg PO Q6HPRN PRN (Reason: mild pain,headache,temp >101F ) Qty: 0 0RF
sennosides-docusate sodium 8.6-50 mg Tablet
1 tab PO Q12 PRN (Reason: Constipation) Qty: 0 0RF
oxycodone 5 mg Tablet
5 mg PO Q6HPRN PRN (Reason: moderate to severe pain) Qty: 14 0RF
metoprolol succinate [Toprol XL] 50 mg tablet extended release 24 hr
50 mg PO DAILY Qty: 30 1RF
warfarin 1 mg tablet
1 mg PO DAILY Qty: 90 1RF
Rx Instructions:
take 2.5 mg tonight 04/23, then dosing as directed by INR
warfarin 2 mg tablet
2 mg PO DAILY Qty: 90 1RF
Rx Instructions:
take 2.5mg tonight (04/23), then dosing as directed by INR
colchicine 0.6 mg tablet
0.3 mg PO DAILY Qty: 7 0RF
Rx Instructions:
take for 2 weeks then stop
Continued
aspirin 81 mg Tablet,Chewable
81 mg PO DAILY
atorvastatin 40 mg tablet
40 mg PO DAILY Qty: 90 3RF
Discontinued
metoprolol succinate 25 mg Tablet Extended Release 24 Hr
25 mg PO DAILY
nitroglycerin 0.4 mg tablet, sublingual
0.4 mg sublingual [id number] PRN (Reason: chest pain) Qty: 25 2RF
Patient Comments:
Patient denies taking any sublingual Nitro.
Discharge Orders:
Discharge Patient (As Directed); Ordered 04/23/24
Ordered By: Peace Joel
Care Plan Goals
Care Plan Goals:
Problem: Readiness for enhanced knowledge related to diagnosis and treatment plan
Goal: Understand your diagnosis and treatment plan needs, including medications if applicable.
Instructions: Know your diagnosis, underlying causes and treatment plan options, including medications if applicable. Consult with your health care team to learn about your diagnosis and treatment plan, including medications if applicable.
Discharge Date and Time
Discharge Date/Time: 04/23/24 10:17
Print Language: IRANIAN
--- NOTE | 2024-04-23 10:02 | PTCARENOTE ---
PIV removed, patient changed independently. Discharge instructions thoroughly reviewed w/patient and spouse, all questions answered. Patient transported to waiting vehicle for d/c home.
== END 2024-04-23 10:17 | disposition home or self-care (01) | DRG 220 ==
LOC: CVICU 05:00
PROVIDERS: Clinical Nurse Specialist Acute Care; Physician Assistant Medical; ADMITTING PHYSICIAN Thoracic Surgery (Cardiothoracic Vascular Surgery); CONSULT PHYSICIAN Internal Medicine Critical Care Medicine; FAMILY PHYSICIAN Nurse Practitioner
PROC: B24BZZ4 Ultrasonography of Heart with Aorta, Transesophageal (ICD-10-PCS; 2024-04-18)
PROC: 02L70CK Occlusion of Left Atrial Appendage with Extraluminal Device, Open Approach (ICD-10-PCS; 2024-04-18)
PROC: 02100Z9 Bypass Coronary Artery, One Artery from Left Internal Mammary, Open Approach (ICD-10-PCS; 2024-04-18)
PROC: 02RF0JZ Replacement of Aortic Valve with Synthetic Substitute, Open Approach (ICD-10-PCS; 2024-04-18)
DX: Q23.81 Bicuspid aortic valve (principal); D62 Acute posthemorrhagic anemia; I30.9 Acute pericarditis, unspecified; J98.11 Atelectasis; E86.1 Hypovolemia; E87.70 Fluid overload, unspecified; F41.0 Panic disorder [episodic paroxysmal anxiety]; I25.10 Atherosclerotic heart disease of native coronary artery without angina pectoris; E78.5 Hyperlipidemia, unspecified; I10 Essential (primary) hypertension; M41.9 Scoliosis, unspecified; E66.812 Obesity, class 2; M19.90 Unspecified osteoarthritis, unspecified site; F17.290 Nicotine dependence, other tobacco product, uncomplicated; Z68.35 Body mass index [BMI] 35.0-35.9, adult; Z79.82 Long term (current) use of aspirin; Z79.899 Other long term (current) drug therapy
CPT/HCPCS: 88305; 88311; 36415; 71045; 71046; 80048; 80053; 81003; 82248; 82330; 82565; 82805; 82810; 82947; 82962; 83036; 83735; 84132; 84302; 84520; 85014; 85018; 85025; 85027; 85049; 85610; 85730; 86850; 86900; 86901; 86920; 87070; 93005; 93880; 94002; J2916; P9045; P9047

== ENCOUNTER 2024-04-30 23:03 | Inpatient (IN) | payer OTHER, SELFPAY ==
[2024-04-30 18:34] VITALS: BP 141/74
[2024-04-30 19:20] VITALS: BP 123/58
[2024-04-30 19:22] VITALS: BMI 35.6
--- NOTE | 2024-04-30 19:33 | EDRN ---
Pt started wheezing yesterday afternoon so he called his doctor and was advised to start Mucinex which he did. Pt says he has a lot of pain when coughing, bringing up clear phlegm. Pt and concerned because he had open heart surgery 04/18/24.
No cp, sob, abd pain, n/v, fever/chills, weakness, dizziness. Pt taken off colchicine 04/25/24 ago due to rash and started on methylprednisone.
--- NOTE | 2024-04-30 19:45 | ED.GENMED ---
History of Present Illness
<VANNA Peña - Last Filed: 05/01/24 01:28>
General
Chief Complaint: Breathing Problem
Source: patient
Exam Limitations: none
Time Seen by Provider: 04/30/24 19:28
Nursing documentation reviewed up to this point in time: agreed with
History of Present Illness
History of Present Illness:
Patient is a 54yo M s/p open heart sx (aortic valve replacement & bypass) on 04/18/24 who presents w/ coughing, wheezing, and chest pain x1 day. He reports sxs started yesterday afternoon w/o known trigger. Denies any strenuous activities and
current illness. He reports coughing up usually clear phlegm which causes chest pain. Pain w/ coughing worse when laying down. Reports continuous wheezing since sxs began yesterday. Pt's reports wheeze is worse today. Pt states he is not really
SOB but wheezing and painful coughing are concern. Denies swelling, MACKENZIE, dizziness, weakness, fatigue, numbness, congestion, runny nose, and N/V. Denies receiving COVID and flu vaccines this year.
Review of Systems
<VANNA Peña - Last Filed: 05/01/24 01:28>
Review of Systems
Constitutional: Denies fever, fatigue or chills
EENT: Denies sore throat or runny nose
Respiratory: Reports cough and trouble breathing
Cardiac: Reports chest pain; Denies palpitations
ABD/GI: Denies abdominal pain, nausea, vomiting, diarrhea or constipated
Musculoskeletal: Denies joint pain, joint swelling, muscle pain, muscle stiffness, edema or neck pain
Neurological: Denies dizzy, headache, weakness or numbness
Phy Exam
<VANNA Peña - Last Filed: 05/01/24 01:28>
General Physical Exam
General Presentation: well appearing
General age: appears stated age
General Skin: warm and dry
General Habitus: normal
General Mental: alert
Cardiovascular Exam
Cardiovascular Exam: regular rate/rhythm, no edema, no gallop and no murmur
Pulmonary Exam
Pulmonary Exam: no respiratory distress, no rales, no crackles, no rhonchi and generalized wheezing (mod-severe )
Gastrointestinal Exam
Gastrointestinal Exam: normal bowel sounds, non tender, soft, no organomegaly and non distended
Neurological Exam
Neurological Exam: alert, oriented x3 and speech normal
Musculoskeletal Exam
Musculoskeletal Exam: no edema
Scores
<VANNA Peña - Last Filed: 05/01/24 01:28>
Heart Failure Risk
Heart Failure Risk Score: Not Applicable
Course
<VANNA Peña - Last Filed: 05/01/24 01:28>
Orders/Labs/Results
Orders:
Orders
04/30/24 19:29
Cardiac Monitoring- Treatment ONCE
CR Chest - 2 Views Urgent
Comment:
Reason For Exam: dyspnea
04/30/24 20:23
Complete Blood Count/With Diff Urgent
Comprehensive Metabolic Panel Urgent
Lipase Urgent
NT-proBNP Urgent
PTT Urgent
Prothrombin Time Urgent
TSH Urgent
Troponin I Urgent
04/30/24 21:35
Electrocardiogram (*1) Urgent
Reason for Study: Shortness of Breath
EKG- Treatment ONCE
04/30/24 21:38
CT Chest Pe Study Urgent
Comment:
Reason For Exam: Dyspnea s/p CABG aortic valve replacement
04/30/24 21:40
Echo 2D MMode Color/Doppler Urgent
Reason for Study: dyspnea s/p CABG
04/30/24 22:01
Heparin 4,000 units IV NOW STA
04/30/24 22:[address] Non Medication Order As Directed
Physician Order: PTT 6 hours after initial start of Heparin infusion
Above order entered?: Yes
04/30/24 22:15
Heparin 17533 Units/250 ml 25,000 units in 250 ml IV PER PROTOCOL
Weight to be used for heparin protocol in kilograms (kg):: 111
Protocol:: Cardiac Tx/Acute Coronary
PTT Goal Range to be used:: PTT 73 to 111 seconds
Order type:: Initial
INITIAL Infusion Dose (UNITS/KG/hr) & then follow protocol:: 15 units/kg/hr
Infusion Dose in UNITS/hr & then follow protocol (UNITS/hr):: 1,500
INFUSION RATE in mL/hr & then follow protocol (mL/hr):: 15
PTT less than or equal to 64 seconds:: Increase rate by 200 units/hr (+ 2 mL/hr)
PTT 64.1 to 72.9 seconds:: Increase rate by 100 units/hr (+ 1 mL/hr)
PTT 73 to 111 seconds:: Target Range. No change in rate.
PTT 111.1 to 130.9 seconds:: Decrease rate by 100 units/hr (- 1 mL/hr)
PTT 131 to 199.9 seconds:: HOLD for 1 hr. Then decrease rate by 200 units/hr (- 2 mL/hr)
PTT greater than or equal to 200 seconds:: HOLD for 2 hrs & Notify Provider. Then decrease by 200 units/hr (-
2 mL/hr)
Lab follow-up:: Each change, PTT q6h until 2 consecutive are therapeutic. Then PTT
daily.
04/30/24 22:45
Admit Patient As Directed
Co-Sign Provider:
Level of Care: Inpatient admission
Assign to:: IVU
Physician / Group: [facility]/CT Surgery
Diagnosis: S/P AVR (On-X mechanical)/CABG with subtherapeutic INR
Reason for Hospitalization: Mechanical AVR with subtherapeutic INR/MILLARD. Will need echocardiogram
Expected length of stay greater than two midnights?: Yes
ELOS- Estimated Length of Stay in days: 3
I certify the patient meets the requirements for IP care: Yes
PRN Pain Medication Management As Directed
May give lesser potent ordered pain med per pt: Yes
preference::
Protocol:: Medication orders for pain may be administered in a
manner that supports deferring to patient preference
when the pt is:
- Requesting an ordered lesser potent pain medication.
Least to most potent pain medications are defined
as: acetaminophen < NSAID < tramadol < opioids
(morphine, oxycodone, hydromorphone).
- Requesting a lesser dose of the same medication IF
ORDERED.
- Requesting a less intrusive route of administration
if both routes are prescribed by the provider (PO <
IV).
05/01/24 04:30
PTT Routine
Abnormal Lab Results
04/30/24
20:23
WBC 11.5 H 10^3/uL
(4.8-10.8)
RBC 3.36 L 10^6/uL
(4.70-6.10)
Hgb 10.0 L g/dL
(13.0-18.0)
Hct 29.7 L %
(39.0-52.0)
Abs Immat Gran (auto) 0.2 H 10^3/uL
(0-0.05)
Absolute Neuts (auto) 8.9 H 10^3/uL
(1.4-6.5)
Absolute Monos (auto) 0.9 H 10^3/uL
(0.1-0.6)
Immature Gran % 1.8 H %
(0-0.5)
Neutrophils % 76.9 H %
(42.2-75.2)
Lymphocytes % 13.6 L %
(20.5-51.1)
PT 18.1 H Sec
(11.4-14.6)
BUN 25 H mg/dl
(9-20)
Glucose 113 H mg/dl
(70-99)
ALT 56 H U/L
(0-50)
Troponin I 0.140 H* ng/ml
04/30/24 20:23
04/30/24 20:23
Vital Signs
Initial and Last Documented VS:
Initial Vital Signs
Temp Pulse Resp BP Pulse Ox
98.2 F 78 18 141/74 98
04/30/24 18:34 04/30/24 18:34 04/30/24 18:34 04/30/24 18:34 04/30/24 18:34
Last Documented Vital Signs
Temp Pulse Resp BP Pulse Ox
98.9 F 73 20 141/110 94
05/01/24 00:17 05/01/24 00:17 05/01/24 00:17 05/01/24 00:17 05/01/24 00:17
<Vinny Dan, DO - Last Filed: 04/30/24 23:05>
Orders/Labs/Results
Orders:
Orders
04/30/24 19:29
Cardiac Monitoring- Treatment ONCE
CR Chest - 2 Views Urgent
Comment:
Reason For Exam: dyspnea
04/30/24 20:23
Complete Blood Count/With Diff Urgent
Comprehensive Metabolic Panel Urgent
Lipase Urgent
NT-proBNP Urgent
PTT Urgent
Prothrombin Time Urgent
TSH Urgent
Troponin I Urgent
04/30/24 21:35
Electrocardiogram (*1) Urgent
Reason for Study: Shortness of Breath
EKG- Treatment ONCE
04/30/24 21:38
CT Chest Pe Study Urgent
Comment:
Reason For Exam: Dyspnea s/p CABG aortic valve replacement
04/30/24 21:40
Echo 2D MMode Color/Doppler Urgent
Reason for Study: dyspnea s/p CABG
04/30/24 22:01
Heparin 4,000 units IV NOW STA
04/30/24 22:[address] Non Medication Order As Directed
Physician Order: PTT 6 hours after initial start of Heparin infusion
Above order entered?: Yes
04/30/24 22:15
Heparin 23602 Units/250 ml 25,000 units in 250 ml IV PER PROTOCOL
Weight to be used for heparin protocol in kilograms (kg):: 111
Protocol:: Cardiac Tx/Acute Coronary
PTT Goal Range to be used:: PTT 73 to 111 seconds
Order type:: Initial
INITIAL Infusion Dose (UNITS/KG/hr) & then follow protocol:: 15 units/kg/hr
Infusion Dose in UNITS/hr & then follow protocol (UNITS/hr):: 1,500
INFUSION RATE in mL/hr & then follow protocol (mL/hr):: 15
PTT less than or equal to 64 seconds:: Increase rate by 200 units/hr (+ 2 mL/hr)
PTT 64.1 to 72.9 seconds:: Increase rate by 100 units/hr (+ 1 mL/hr)
PTT 73 to 111 seconds:: Target Range. No change in rate.
PTT 111.1 to 130.9 seconds:: Decrease rate by 100 units/hr (- 1 mL/hr)
PTT 131 to 199.9 seconds:: HOLD for 1 hr. Then decrease rate by 200 units/hr (- 2 mL/hr)
PTT greater than or equal to 200 seconds:: HOLD for 2 hrs & Notify Provider. Then decrease by 200 units/hr (-
2 mL/hr)
Lab follow-up:: Each change, PTT q6h until 2 consecutive are therapeutic. Then PTT
daily.
04/30/24 22:45
Admit Patient As Directed
Co-Sign Provider:
Level of Care: Inpatient admission
Assign to:: IVU
Physician / Group: [facility]/CT Surgery
Diagnosis: S/P AVR (On-X mechanical)/CABG with subtherapeutic INR
Reason for Hospitalization: Mechanical AVR with subtherapeutic INR/MILLARD. Will need echocardiogram
Expected length of stay greater than two midnights?: Yes
ELOS- Estimated Length of Stay in days: 3
I certify the patient meets the requirements for IP care: Yes
PRN Pain Medication Management As Directed
May give lesser potent ordered pain med per pt: Yes
preference::
Protocol:: Medication orders for pain may be administered in a
manner that supports deferring to patient preference
when the pt is:
- Requesting an ordered lesser potent pain medication.
Least to most potent pain medications are defined
as: acetaminophen < NSAID < tramadol < opioids
(morphine, oxycodone, hydromorphone).
- Requesting a lesser dose of the same medication IF
ORDERED.
- Requesting a less intrusive route of administration
if both routes are prescribed by the provider (PO <
IV).
05/01/24 04:30
PTT Routine
Abnormal Lab Results
04/30/24
20:23
WBC 11.5 H 10^3/uL
(4.8-10.8)
RBC 3.36 L 10^6/uL
(4.70-6.10)
Hgb 10.0 L g/dL
(13.0-18.0)
Hct 29.7 L %
(39.0-52.0)
Abs Immat Gran (auto) 0.2 H 10^3/uL
(0-0.05)
Absolute Neuts (auto) 8.9 H 10^3/uL
(1.4-6.5)
Absolute Monos (auto) 0.9 H 10^3/uL
(0.1-0.6)
Immature Gran % 1.8 H %
(0-0.5)
Neutrophils % 76.9 H %
(42.2-75.2)
Lymphocytes % 13.6 L %
(20.5-51.1)
PT 18.1 H Sec
(11.4-14.6)
BUN 25 H mg/dl
(9-20)
Glucose 113 H mg/dl
(70-99)
ALT 56 H U/L
(0-50)
Troponin I 0.140 H* ng/ml
04/30/24 20:23
04/30/24 20:23
Vital Signs
Initial and Last Documented VS:
Initial Vital Signs
Temp Pulse Resp BP Pulse Ox
98.2 F 78 18 141/74 98
04/30/24 18:34 04/30/24 18:34 04/30/24 18:34 04/30/24 18:34 04/30/24 18:34
Last Documented Vital Signs
Temp Pulse Resp BP Pulse Ox
98.9 F 73 20 141/110 94
05/01/24 00:17 05/01/24 00:17 05/01/24 00:17 05/01/24 00:17 05/01/24 00:17
<VANNA Peña - Last Filed: 05/01/24 01:28>
MDM/Problems Addressed
Differential Diagnosis Includes:
aortic regurg, pulm congestion, HF
<VANNA Peña - Last Filed: 05/01/24 01:28>
*Critical Care Note
Total Time (30-74mins, 75-104mins- exclusive of procedures): Not Applicable
<Vinny Dan DO - Last Filed: 04/30/24 23:05>
*Critical Care Note
Total Time (30-74mins, 75-104mins- exclusive of procedures): 45
comment:
Critical care statement: A total of 45 minutes of critical care time was provided for this patient. This time is separate from time utilized to perform the aforementioned documented procedures. Aggregate critical care time includes only time
during which I was engaged in work directly related to the patient's care, as described above, whether at the bedside or elsewhere in the Emergency Department.
<Vinny Dan DO - Last Filed: 04/30/24 23:05>
Update Note
Update Note:
Spoke with Dr. Eliezer Blackmon, cardiothoracic surgery to discuss elevation in troponin. He requested a CT angio of the chest as well as a bedside echocardiogram. Spoke with Dr. Jose Anderson, diagnostic cardiology, who agreed.
ED Attending Note
<VANNA Peña - Last Filed: 05/01/24 01:28>
-
Portions of this chart may have been created with voice recognition software.� Occasional wrong word or��sound alike� substitutions may have occurred due to the inherent limitations of voice recognition software.
<Vinny Dan DO - Last Filed: 04/30/24 23:05>
ED Attending Note
Patient seen and examined by attending physician: Yes
I performed the substantive portion of visit, reviewed & personally made and approve the management plan that is documented in note by myself or CARMEN.: Yes
ED Attending Note:
Pleasant 54-year-old male presents to the emergency department with cough and wheezing. Patient had episodes of chest pain for the last day. He is 12 days post CABG and aortic valve replacement. Patient states that tonight his coughing was worse
when lying down. He did have intermittent episodes of chest pain. Patient was seen in conjunction with the PA student. I have reviewed and agree with the history and treatment plan presented. On my independent physical exam, patient is awake,
alert, and oriented x3 minimal acute distress. Heart is regular rate rhythm. Lungs are clear to auscultation bilateral without wheezes rales or rhonchi abdomen soft nontender. Skin is warm and dry moves all 4 extremities.
EKG shows normal sinus rhythm rate of 65 with normal intervals, normal axis. No evidence of acute ischemia present.
I spoke with Dr. Eliezer Blackmon, cardiothoracic surgeon, who requested heparinization, echocardiogram, and CT chest PE study. Cardiothoracic physician music assistant Cornell Davis evaluated the patient at the bedside. Patient to be admitted to
[facility] service.
Discharge Plan
Departure
Patient Disposition: Admit
Date of Disposition: 04/30/24
Time of Disposition: 22:26
Admit to: IVU
Admit to doctor: Eliezer Blackmon
Presentation/result/management discussed w/ accepting MD/DO: Hospitalist
Discharge Problem:
Acute dyspnea, Elevated troponin
Interventions
Interventions:
*Risk Screen - Suicide Last Done: 05/01/24 00:29
*General Assessment Last Done: 04/30/24 18:34
*Neglect/Abuse Screening Last Done: 04/30/24 18:34
ED- Fall Risk Assessment Last Done: 04/30/24 19:40
*ED COVID-19 Vaccine History Last Done: 05/01/24 00:25
*Nursing Disposition Last Done: 05/01/24 00:03
ED- Cardiac Assessment Last Done: 04/30/24 19:40
ED- Pulmonary Assessment Last Done: 04/30/24 19:40
Discharge Date and Time
Discharge Date/Time: 05/01/24 00:03
[2024-04-30 20:00] VITALS: BP 124/63
[2024-04-30 20:31] LABS: % Basophils 0.3 % (0-2); % Immature Granulocytes 1.8 % (0-0.5); % Lymphocytes 13.6 % (20.5-51.1); % Monocytes 7.4 % (1.7-9.3); % Neutrophils 76.9 % (42.2-75.2); Absolute Immature Granulocytes 0.2 10^3/uL (0-0.05); Absolute Lymphocytes 1.6 10^3/uL (1.2-3.4); Absolute Monocytes 0.9 10^3/uL (0.1-0.6); Absolute Neutrophils 8.9 10^3/uL (1.4-6.5); Hematocrit 29.7 % (39.0-52.0); Mean Corp Hgb Conc. 33.7 g/dL (33.0-37.0); Mean Corpuscular Hgb 29.8 pg (27.0-31.0); Mean Corpuscular Volume 88.4 fL (80.0-94.0); Mean Platelet Volume 8.5 fL (7.4-10.4); Nucleated Red Blood Cells % 0 % (-); Platelet Count 351 10^3/uL (130-400); Red Blood Cell Count 3.36 10^6/uL (4.70-6.10); Red Cell Dist. Width 14.4 % (11.5-14.5); White Blood Cell Count 11.5 10^3/uL (4.8-10.8)
[2024-04-30 20:41] LABS: INR 1.52; PT 18.1 Sec (11.4-14.6)
[2024-04-30 20:42] LABS: APTT 31.4 Sec (23.4-35.0)
[2024-04-30 20:46] LABS: ALT (SGPT) 56 U/L (0-50); AST (SGOT) 36 U/L (17-59); Albumin 3.9 g/dl (3.5-5.0); Alkaline Phosphatase 86 U/L (38-126); Blood Urea Nitrogen 25 mg/dl (9-20); Carbon Dioxide 28 mmol/L (22-30); Chloride 102 mmol/L (98-107); Estimated Creatinine Clearance 113 ml/min; Glucose 113 mg/dl (70-99); Lipase 119 U/L (23-300); Potassium 4.6 mmol/L (3.5-5.1); Sodium 138 mmol/L (135-145); Total Bilirubin 0.4 mg/dl (0.2-1.3); Total Protein 6.5 g/dl (6.3-8.2); eGFR > 60.00
[2024-04-30 21:03] LABS: NT-proBNP 1370 pg/ml
[2024-04-30 21:08] VITALS: BP 120/60
[2024-04-30 21:23] LABS: TSH 3.42 uIU/ml (0.47-4.68)
[2024-04-30 22:00] VITALS: BP 123/63
[2024-04-30] MEDS: HEPARIN 4000 UNITS IV (22:25)
[2024-04-30] MEDS: HEPARIN 25000 UNITS/250 ML IV (22:26)
[2024-04-30 23:13] VITALS: BP 126/62
[2024-05-01] VITALS (10 sets, daily range): BP systolic 110–141; BP diastolic 58–110; BMI 34.3
[2024-05-01] MEDS: COUMADIN 2 MG PO (01:05)
[2024-05-01 01:35] LABS: COVID-19 Antigen Negative (Negative)
--- NOTE | 2024-05-01 01:38 | HPS.HSE ---
Family Physician
-
Family Physician: Purvi Bernard
Chief Complaint
-
Dyspnea, cough and pleuritic chest pain
History of Present Illness
54 y/o pleasant man known to our service who underwent Sternotomy/CABG x 1 (In situ GRAY to LAD)/ AVR (23 mm On-X mechanical prosthesis)/Left atrial appendage ligation [35 mm clip], by Dr. Darnell, 04/18/24 and was discharged home on 04/23/24. Pt's
postop course was without significant complication other than acute pericarditis for which he was sent home on Colchicine. States he developed a rash at home, which was believed to be caused by colchicine, was told to discontinue and was started on
methylprednisolone. 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 Drew Crawford and was advised to
take Mucinex, and to report to nearest ED if his symptoms did not improve. Pt presented to -ED on the evening of 04/30/24 with c/o ongoing cough (clear productive mucous), dyspnea, and pleuritic chest pain. Pt reports associated wheezing, but
denies fever. Pt was a cigar smoker just prior to his heart surgery but denies any cigar or cigarette smoking following his surgery, states 'I quit cigars.' In the ED pt's vitals were noted to be stable, with O2 sats of 100% on RA. His troponin was
elevated @ 0.140, his INR was 1.52. Pt's cxr, CT of chest and subsequent TTE were all unremarkable. Pt is being admitted for further medical optimization including Coumadin and Heparin bridging given INR of 1.52 (the recommended therapeutic INR for
On-X mechanical valve is 2.0-3.0 the first 3 months and 1.5-2.0 thereafter). Of note, pt's surgical incisions are healing nicely without any open wounds or drainage. Sternal incision is intact without any signs of sternal dehiscence.
Medical History
Past Medical History
Past Medical History: Reports Psychiatric and Other
Additional Past Medical History:
-New onset of Cough, dyspnea and pleuritic chest pain
-S/p Sternotomy/CABG x 1 (In situ GRAY to LAD)/ AVR (23 mm mechanical prosthesis)/Left atrial appendage ligation [35 mm clip], by Dr. Darnell, 04/18/24
-Severe critical /bicuspid aortic valve
-Single vessel CAD (80% mid LAD)
-[place]
-LVEF 60%
-HTN
-HLD
-Class 2 obesity (BMI 37.1)
-Probable UVALDO, loud snoring
-Active tobacco abuse
-Nephrolithiasis
-OA
-Scoliosis/back pain
-DJD
-Acute postop blood loss/Anemia (stable without transfusion)
-Acute postop atelectasis
-Acute postop hypovolemia with subsequent hypervolemia
-Acute postop pericarditis (+rub)- on Colchicine
Past Surgical History: Reports Other
Additional Past Surgical History:
S/p Sternotomy/CABG x 1 (In situ GRAY to LAD)/ AVR (23 mm mechanical prosthesis)/Left atrial appendage ligation [35 mm clip], by Dr. Darnell, 04/18/24
Social History
Tobacco: Former Smoker
Alcohol: Occasional
Drug: None
Personal:
Living: With Family
Employment: Employed
Family History
Family History: Not pertinent
Allergies / Home Medications
Allergies reflects when Allergies were last updated in [facility].
Home Medications with original date entered in [facility]
Allergy/Medication List:
Colchicine (hives)
Review of Systems
-
History Source: Patient
Constitutional: Reports No Symptoms
EENT: Reports No Symptoms
Respiratory: Reports Cough, Trouble Breathing and Other (pleuritic chest pain)
Cardiac: Reports No Symptoms
Abdomen/GI: Reports No Symptoms
: Reports No Symptoms
Musculoskeletal: Reports Muscle Pain
Skin: Reports No Symptoms
Neurological: Reports No Symptoms
Endocrine: Reports No Symptoms
Hematologic/Lymphatic: Reports No Symptoms
Psych: Reports No Symptoms
Physical Exam
Vital Signs
Vital Signs
Temp Pulse Resp BP Pulse Ox
98.9 F 73 20 141/110 94
05/01/24 00:17 05/01/24 00:17 05/01/24 00:17 05/01/24 00:17 05/01/24 00:17
Physical Exam
General: Well Developed, Well Nourished, No Apparent Distress and Conversant
HEENT: NormoCephalic, Anicteric, Moist mucous membranes and Atraumatic
Respiratory: Wheezes (coarse with mild expiratory wheezing)
Cardiac: S1/S2 and Regular Rhythm
Breast: Deferred by me
GI: Soft, Non Tender, Non Distended and Normal Bowel Sounds
Rectal: Deferred by Provider
Genito-urinary: Deferred by me
Skin: Warm
Neuro: Awake, Alert, Oriented, AO x 3 and No Motor Deficits
Hematologic/Lymphatic: No Lymphadenopathy
Psych: Calm
Laboratory Results
-
04/30/24 20:23
04/30/24 20:23
Laboratory Results
PT 18.1 Sec (11.4-14.6) H 04/30/24 20:23
INR 1.52 04/30/24 20:23
APTT 31.4 Sec (23.4-35.0) 04/30/24 20:23
Total Bilirubin 0.4 mg/dl (0.2-1.3) 04/30/24 20:23
AST 36 U/L (17-59) 04/30/24 20:23
ALT 56 U/L (0-50) H 04/30/24 20:23
Alkaline Phosphatase 86 U/L (38-126) 04/30/24 20:23
Troponin I 0.140 ng/ml H* 04/30/24 20:23
Lipase 119 U/L (23-300) 04/30/24 20:23
Impression/Plan
-
IMPRESSION:
54 y/o pleasant man known to our service who underwent sternotomy/CABG x 1 (In situ GRAY to LAD)/ AVR (23 mm mechanical prosthesis)/Left atrial appendage ligation [35 mm clip], by Dr. Darnell, 04/18/24 and was discharged home on 04/23/24, presents to
-ED on the evening of 04/30/24 with c/o of sudden onset of cough, dyspnea and pleuritic chest pain. Troponin noted to be 0.140, and INR of 1.52. CXR, CT of chest, and TTE were all unremarkable.
PLAN:
-Medical optimization including Coumadin/heparin bridge
[2024-05-01] MEDS: VENTOLIN NEBULES 2.5 MG INH (01:49)
[2024-05-01] MEDS: COUMADIN 3 MG PO (02:01)
[2024-05-01] MEDS: XOPENEX 1.25 MG INHALANT SOLUTION INH (05:17)
[2024-05-01 06:26] LABS: INR 1.58; PT 18.7 Sec (11.4-14.6)
--- NOTE | 2024-05-01 06:34 | PTCARENOTE ---
Rec'd pt from ED. Pt on TELE monitor in NSR, VSS, and AAO*3. Pt denied any pain or discomfort. Pt with heparin infusing at
1500 units per hour. Pt oriented to unit and room. Pt with inspiratory wheezing but denies any chest pain. CT PA Jesus aware. Awaiting chest ct and portable chest xray results. Pt refused any supplemental O2, yet pt at 97% on room air. Pt
rec'd two respiratory treatments that provided temporary relief. Pt resting in bed with call araujo in reach. Plan of care ongoing.
[2024-05-01 06:41] LABS: Troponin I 0.165 ng/ml
[2024-05-01 06:42] LABS: APTT > 200.0 Sec (23.4-35.0)
--- NOTE | 2024-05-01 07:27 | PTCARENOTE ---
Rec'd PTT resulting greater than 200. Heparin gtt put on hold at 0643. MAGALIS Duenas notified. Pt resting iwth call araujo in reach.
[2024-05-01] MEDS: VENTOLIN NEBULES 1.25 MG INH ×4 (07:53→19:39)
[2024-05-01] MEDS: ASPIR LOW (ENTERIC COATED) 81 MG PO (08:18)
[2024-05-01] MEDS: KCL 20 MEQ PO (08:18)
[2024-05-01] MEDS: MEDROL 4 MG PO (08:18)
[2024-05-01] MEDS: LASIX 40 MG IV (08:18)
[2024-05-01] MEDS: TOPROL XL 50 MG PO (08:18)
[2024-05-01] MEDS: SENOKOT-S 1 TABLET PO (08:18)
--- NOTE | 2024-05-01 08:44 | CON.CAR ---
Addendum entered and electronically signed by Kd Ortiz MD 05/01/24 10:18:
54 yo male with recent CABG and mechanical AVR (On-X) 04/18/24, post op pericarditis. Had rash on colchicine, now on steroids. Admitted with SOB/wheezing, and subtherapeutic INR. SOB/wheezing has improved with nebulizers. Exam with RRR,
+mechanical valve click, no edema. Cr 0.9, Hgb 10. Weight is lower than discharge weight.
SOB/wheezing. Does not appear to be in HF. Responds to nebulizers. Echo with normal LVEF, normal mech valve function, no pericardial effusion. He will undergo pulm eval.
He is bridging on heparin to therapeutic INR.
Original Note:
Consultation
Consultation Request
Date/Time Consultation Requested: 05/01/2024 08:30
Date/Time Consultation Performed: 05/01/2024 08:40
Requesting Provider: JHON Galeas
Performing Provider: JHON Harris for Dr. Ortiz
Reason for Consultation: Postop cardiac surgery
Medical History
-
Chief Complaint: Dyspnea
History of Present Illness:
Daniel Landis is a 54-year-old male (known to Dr. 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
clip by Dr. Darnell on 04/18/2024 presented to the emergency department yesterday with dyspnea. He was discharged home 04/23/2024. He was sent home on colchicine for acute pericarditis. He developed a rash at home. Colchicine was believed to be the
culprit and it was discontinued. He was started on methylprednisolone. He was recovering well at home when he had dyspnea with associated audible wheeze on 04/29/2024. His primary munitions handler supervisor office advised him to start Mucinex. He
was told to report to the emergency room if symptoms did not improve. Unfortunately, symptoms did not improve and he presented to the emergency room. No fever. No recent illness in the home. He stopped smoking prior to cardiac surgery and has
not resumed. He is not hypoxic. There are no acute findings on his chest x-ray. However, his INR was found to be subtherapeutic.
Past Medical History
Past Medical History: CAD (CABG [04/18/21]), HTN, Hypercholesterolemia and Valvular Disease (Bicuspid aortic valve s/p on X mechanical valve [04/18/24])
Past Surgical History: Cardiac
Social History
Tobacco: Former Smoker
Alcohol: None
Personal:
Living: With Family
Family History
Family History: Reviewed & Not Pertinent
Allergies / Home Medications
Allergy/AdvReac Type Severity Reaction Status Date / Time
colchicine Allergy pt being Verified 04/30/24 19:32
worked up
for
potential
allergic rx
�Medication �Instructions �Recorded �Confirmed �Type
aspirin 81 mg chewable tablet 81 mg PO DAILY Blood Clot 04/04/24 04/30/24 History
Prevention/Tx
atorvastatin 40 mg tablet 40 mg PO DAILY #90 tabs 04/04/24 04/30/24 Rx
acetaminophen 325 mg tablet 650 mg (2 x 325 mg) PO Q6HPRN PRN 04/23/24 04/30/24 Rx
mild pain,headache,temp >101F #0
tabs
metoprolol succinate 50 mg 50 mg PO DAILY #30 tabs 04/23/24 04/30/24 Rx
tablet,extended release 24 hr
(Toprol XL)
oxycodone 5 mg tablet 5 mg PO Q6HPRN PRN moderate to 04/23/24 04/30/24 Rx
severe pain #14 tabs
warfarin 1 mg tablet 1 mg PO DAILY #90 tabs 04/23/24 04/30/24 Rx
dextromethorphan-guaifenesin 10 1 tab-cap PO Q6HPRN PRN wheeezing 04/30/24 04/30/24 History
mg-200 mg capsule (Mucinex
Cough-Chest Congestion HBP)
melatonin 10 mg tablet 10 mg PO HS 04/30/24 04/30/24 History
methylprednisolone 4 mg tablet 4 mg PO DAILY 04/30/24 04/30/24 History
metoprolol succinate 25 mg 25 mg PO DAILY 04/30/24 04/30/24 History
tablet,extended release 24 hr
sennosides 8.6 mg-docusate sodium 1 tab PO Q48H 04/30/24 04/30/24 History
50 mg tablet
Review of Systems
-
History Source: Patient
All other systems: Negative unless noted
EENT: No Symptoms
Respiratory: Trouble Breathing
Cardiac: No Symptoms
Abdomen/GI: No Symptoms
: No Symptoms
Musculoskeletal: No Symptoms
Skin: No Symptoms
Neurological: No Symptoms
Endocrine: No Symptoms
Hematologic/Lymphatic: No Symptoms
Physical Exam
Vital Signs
Temp Pulse Resp BP Pulse Ox
98.5 F 80 18 132/76 99
05/01/24 07:29 05/01/24 07:55 05/01/24 07:55 05/01/24 07:27 05/01/24 07:55
Lab Results
04/30/24 20:23
04/30/24 20:23
Troponin I 0.165 ng/ml H* 05/01/24 05:57
Sdc-[id number]-[id number] Pept 1370 pg/ml 04/30/24 20:23
Physical Exam
General: Well Developed, Well Nourished, No Apparent Distress and Comfortable
HEENT: Normocephalic, Anicteric and Moist Mucous Membranes
Respiratory: Clear and Non Labored Respirations
Cardiac: S1/S2 and Regular Rhythm
Breast: Deferred by me
GI: Soft, Non Tender, Non Distended and Normal Bowel Sounds
Rectal: Deferred by Provider
Genito-urinary: No Costovertebral Tender
Musculoskeletal: No Clubbing
Skin: Warm and Dry
Neuro: AO x 3
Hematologic/Lymphatic: No Lymphadenopathy
Psych: Calm
Impression / Plan
-
BACKGROUND: 54M with single-vessel CAD and severe aortic stenosis who presents for AVR s/p mechanical AVR, single vessel CABG and left atrial appendage ligation (04/18/2024) presented with dyspnea.
Staff Registered Nurse: Dr. Crawford
Dyspnea
-EKG & telemetry
-No acute findings on CXR
-He is below his presurgery weight without edema
-No pericardial effusion on echocardiogram
-Hemoglobin improved
Severe aortic stenosis (bicuspid morphology) S/P AVR with 25 mm On-X mechanical valve by Dr. Darnell on 04/18/2024
CAD s/p CABG x 1 (in situ GRAY�LAD)
-TTE 04/30/2024: Mean gradient 11 mmHg
-On warfarin for mech valve, subtherapeutic, continue heparin drip
-INR goal: 2.0-3.0 the first 3 months and 1.5-2.0 thereafter
Abnormal troponin, likely nonischemic myocardial injury in the setting of recent cardiac surgery
-He is having no chest pain
-Trend to peak
Postoperative pericarditis
-On methylprednisolone
-Allergy to colchicine (rash)
HTN, chronic and stable
Dyslipidemia, LDL around 150 prior to initiation of atorvastatin, cont. atorvastatin
Obesity, BMI 34, he would benefit from weight loss
Former smoker, continue cessation recommended
SUBJECTIVE:
See ROS
DATA:
Transthoracic echocardiogram, 04/30/2024:
Fair image quality.
Normal biventricular size and systolic function without regional wall motion
abnormality.
Normal functioning 23 mmHg On-X mechanical valve, well seated, trace AI, mean
gradient 11 mmHg.
Mild MR.
No pericardial effusion.
This is the first transthoracic echocardiogram since recent AVR/CABGx1/PERLA
clipping.
Data Reviewed
-
EKG: Report Reviewed by me
Medical Tests (Nuc Med, Echo etc): Report Reviewed by me (Echocardiogram as above)
Labs: Labs Reviewed by me
Old Records: Reviewed
--- NOTE | 2024-05-01 08:45 | CM ---
Reviewed chart. Met with Mr. Landis to review discharge plans. He states prior to admission he resides with his spouse in a two story home with two steps to enter. He has a full flight of steps to get to bedroom and powder room. His full
bathroom is on the first floor. He states prior to admission to he was independent with ambulation and adls. He does not have any DME in the home. He has a prescription plan. Medical work-up in progress. The discharge plan is to return home
with his spouse when medically stable.
--- NOTE | 2024-05-01 10:18 | PTCARENOTE ---
Pt is AOx3 and pleasant. OOB to chair. Heparin gtt now infusing at 1300 units/hr. Pt has no c/o pain/discomfort at this time. Pt w/ moist, non-prod. cough. Assessment completed as documented. Currently in chair; call van w/in reach.
--- NOTE | 2024-05-01 10:22 | PTCARENOTE ---
Pt is AOx3 and pleasant. OOB to chair. Heparin gtt now infusing at 1300 units/hr. Pt has no c/o pain/discomfort at this time. Assessment completed as documented. Currently in chair; call van w/in reach.
--- NOTE | 2024-05-01 11:02 | CON.PUL ---
Consultation
Consultation Request
Date/Time Consultation Requested: 05/01/24
Date/Time Consultation Performed: 05/01/24
Performing Provider: Brittany
Reason for Consultation: Wheezing
Medical History
-
History of Present Illness:
Patient is a 54-year-old obese male with a history of hypertension, hyperlipidemia, bicuspid aortic valve with severe aortic stenosis s/p recent CAB and aortic valve replacement 04/18/2024 presenting wtih acute onset of SOB/wheezing over weekend.
He denies any known triggers, not related to exertion. No exposures/activity out of the ordinary. Not sure if he had sick contacts, saw usual family. Occasionally has cough/mucus, clear sputum. Denies history of known lung disease. Lifelong
nonsmoker, in the past few years picked up cigars, 2-3 times per week.
Denies exposures, recent travel.
Family history is significant for asthma, his daughter.
On arrival, he was not notably hypoxemia. Chest imaging negative thus far. He does feel the nebulizers are helping.
.
Past Medical History
Past Medical History: Other (see list below)
Social History
Tobacco: Smoker (cigars)
Alcohol: None
Drug: None
Family History
Family History: Reviewed & Not Pertinent
Allergies / Home Medications
Allergies
Allergy/AdvReac Type Severity Reaction Status Date / Time
colchicine Allergy pt being Verified 04/30/24 19:32
worked up
for
potential
allergic rx
Home Medications
�Medication �Instructions �Recorded �Confirmed �Last Taken �Type
aspirin 81 mg chewable tablet 81 mg PO DAILY Blood Clot 04/04/24 04/30/24 04/17/24 08:00 History
Prevention/Tx 81 mg
atorvastatin 40 mg tablet 40 mg PO DAILY #90 tabs 04/04/24 04/30/24 04/17/24 08:00 Rx
40 mg
acetaminophen 325 mg tablet 650 mg (2 x 325 mg) PO Q6HPRN PRN 04/23/24 04/30/24 Unknown Rx
mild pain,headache,temp >101F #0
tabs
metoprolol succinate 50 mg 50 mg PO DAILY #30 tabs 04/23/24 04/30/24 Unknown Rx
tablet,extended release 24 hr
(Toprol XL)
oxycodone 5 mg tablet 5 mg PO Q6HPRN PRN moderate to 04/23/24 04/30/24 Unknown Rx
severe pain #14 tabs
warfarin 1 mg tablet 1 mg PO DAILY #90 tabs 04/23/24 04/30/24 Unknown Rx
dextromethorphan-guaifenesin 10 1 tab-cap PO Q6HPRN PRN wheeezing 04/30/24 04/30/24 Unknown History
mg-200 mg capsule (Mucinex
Cough-Chest Congestion HBP)
melatonin 10 mg tablet 10 mg PO HS 04/30/24 04/30/24 Unknown History
methylprednisolone 4 mg tablet 4 mg PO DAILY 04/30/24 04/30/24 Unknown History
metoprolol succinate 25 mg 25 mg PO DAILY 04/30/24 04/30/24 Unknown History
tablet,extended release 24 hr
sennosides 8.6 mg-docusate sodium 1 tab PO Q48H 04/30/24 04/30/24 Unknown History
50 mg tablet
Review of Systems
-
History Source: Patient
All other systems: Negative unless noted
Vitals / Labs / Diagnostic Testing
Vital Signs
Temp Pulse Resp BP Pulse Ox
98.5 F 80 18 132/76 99
05/01/24 07:29 05/01/24 07:55 05/01/24 07:55 05/01/24 07:27 05/01/24 07:55
Lab Data
04/30/24 20:23
04/30/24 20:23
Laboratory Results
04/30/24 05/01/24
20:23 05:57
PT 18.1 H 18.7 H
INR 1.52 1.58
APTT 31.4 > 200.0 H*
Microbiology
05/01/24 01:04 Nasal Swab Influenza Types A & B (KARINA) - Final
Negative for Influenza A & B, NAAT
Negative results must be combined with clinical observations
and patient history.
Nucleic Acid Amplification test (NAAT)performed on the
[employer] platform.
Diagnostic Testing:
Physical Exam
-
HEENT: Normocephalic, Anicteric and Moist Mucous Membranes
Cardiovascular: S1/S2 and Regular Rhythm
Respiratory: Rhonchi and Non-Labored Respirations
GI: Soft, Non Distended and Non Tender
Neurology: Awake, Alert and No Motor Deficits
Skin: Warm, Dry and Good Color
General: Comfortable and Other (NAD)
Assessment
-
Patient is a 54-year-old obese male with a history of hypertension, hyperlipidemia, bicuspid aortic valve with severe aortic stenosis s/p recent CAB and aortic valve replacement 04/18/2024 presenting wtih acute onset of SOB/wheezing over weekend.
He denies any known triggers, not related to exertion. Occasionally has cough/mucus, clear sputum. Denies history of known lung disease. Lifelong nonsmoker, in the past few years picked up cigars, 2-3 times per week. On arrival, he was not
notably hypoxemia. Chest imaging negative thus far. We are consulted for eval.
Acute SOB/wheezing
Elevated trops, likely nonMI related
Suspect UVALDO due to BMI/body habitus
Conditions present prior to admission:
CAD and severe aortic stenosis status post X 1-GRAY-LAD, AVR-23 mm mechanical prosthesis, left atrial appendage ligation 04/18/24
Obesity, BMI 34.
Hyperlipidemia
HTN
Nephrolithiasis.
Scoliosis.
Plan
No oxygen was needed on admission, currently saturating >90% on RA
No history of use in past
Prior history of lung disease is not noted
Lifelong nonsmoker, recent use of cigars but not enough to cause/warrant lung disease risk
Family history is significant for asthma, his daughter.
Suspect patient has adult onset asthma
CXR/CT obtained indicating NAD, neg for PE
Will obtain baseline PFT
Currently on albuterol, pending results of PFT can add ICS
Denies history of prior childhood asthma history
Elevated trops noted, likely non-mi related
CTS following
Prior ECHO results are reviewed indicating normal function
Following trend
Weight loss measures recommended
Obesity likely contributing to respiratory symptoms
Suspect UVALDO, outpatient PSG recommended
Will need outpatient pulmonary evaluation in our office for PFTs and 6MWT
Reviewed with patient, can continue w/u there if all imaging negative
We will follow
Diagnostic Data
CXR 05/01/24-1. Clear lungs. 2. No significant change compared to prior study.
Chest x-ray 04/18/2024-endotracheal tube tip above the segun, low lung volumes and probable mild basilar subsegmental atelectasis, no pneumothorax
CT Chest 04/30/24-1. No evidence of pulmonary embolism or thoracic aortic dissection.
2. Clear lungs.
3. Trace pericardial fluid and air, likely postoperative. No significant pericardial effusion.
CT chest abdomen and pelvis 04/11/2024-severe calcification of the aortic valve, contracted gallbladder, scoliosis
IntraOp JADIEL-EF 65%
Catheterization-cardiac 04/04/2024-critical aortic stenosis with mean gradient 65, EF 61%, single-vessel CAD with 80% mid LAD stenosis
Reports and relevant images were personally reviewed.
Total time spent on this consultation __75__ includes review of history, physical exam, medications, laboratory data, personal review of imaging, extensive review of outpatient records, discussion with care team and respiratory therapy.
[2024-05-01 14:18] LABS: INR 1.54; PT 18.3 Sec (11.4-14.6)
[2024-05-01 14:21] LABS: APTT 95.7 Sec (23.4-35.0)
[2024-05-01 14:33] LABS: Troponin I 0.145 ng/ml
[2024-05-01] MEDS: TOPROL XL 25 MG PO (14:55)
[2024-05-01] MEDS: LIPITOR 40 MG PO (17:42)
[2024-05-01] MEDS: COUMADIN 7.5 MG PO (17:42)
[2024-05-01] MEDS: HEPARIN 25000 UNITS/250 ML IV (17:43)
[2024-05-01] MEDS: ZOFRAN 4 MG PO (18:55)
--- NOTE | 2024-05-01 19:04 | PTCARENOTE ---
Pt c/o nausea. Deb Duenas notified and orders placed. Zofran administered as ordered. See MAR.
[2024-05-01 20:48] LABS: APTT 69.3 Sec (23.4-35.0)
[2024-05-01] MEDS: XANAX 0.5 MG PO (22:34)
--- NOTE | 2024-05-01 23:00 | PTCARENOTE ---
Pt received at change of shift. BP 110/58, NSR on tele with HR 80s-90s. Pt with frequent moist cough that he states is non productive. Pt educated on the need for sputum culture if cough becomes productive and pt verbalizes understanding. No
complaints of SOB, however pt states it is sometimes painful to take a deep breath. Pulse ox 98% on RA. Heparin gtt currently infusing at 14ml/hr. Ambulating independently in room w/o difficulty. Can make needs known. Call araujo within reach.
[2024-05-02 03:11] VITALS: BP 114/79
[2024-05-02 03:45] LABS: INR 1.91; PT 21.7 Sec (11.4-14.6)
[2024-05-02 03:49] LABS: Blood Urea Nitrogen 21 mg/dl (9-20); Calcium 9.3 mg/dl (8.4-10.2); Carbon Dioxide 25 mmol/L (22-30); Chloride 102 mmol/L (98-107); Estimated Creatinine Clearance 91 ml/min; Glucose 101 mg/dl (70-99); Magnesium 2.2 mg/dl (1.6-2.3); Potassium 4.2 mmol/L (3.5-5.1); Sodium 139 mmol/L (135-145); eGFR > 60.00
[2024-05-02 04:09] LABS: APTT > 200 Sec (23.4-35.0)
--- NOTE | 2024-05-02 05:39 | W.PN.CT ---
Today's Communication / Plan
-
-Heparin to Coumadin bridge
-Has received 5 and 7.5 mg of Coumadin thus far, INR 1.91 today up from 1.54 yesterday
-OOB into chair/Ambulate
-Home likely tomorrow
Assessment / Plan
-
-New onset of Cough, dyspnea and pleuritic chest pain
-S/p Sternotomy/CABG x 1 (In situ GRAY to LAD)/ AVR (23 mm mechanical prosthesis)/Left atrial appendage ligation [35 mm clip], by Dr. Darnell, 04/18/24
-Severe critical /bicuspid aortic valve
-Single vessel CAD (80% mid LAD)
-[place]
-LVEF 60%
-HTN
-HLD
-Class 2 obesity (BMI 37.1)
-Probable UVALDO, loud snoring
-Active tobacco abuse
-Nephrolithiasis
-OA
-Scoliosis/back pain
-DJD
-Acute postop blood loss/Anemia (stable without transfusion)
-Acute postop atelectasis
-Acute postop hypovolemia with subsequent hypervolemia
-Acute postop pericarditis (+rub)- on Colchicine, transitioned to Methylprednisolone
Discussed patient care with: Cardiology, Nursing, Respiratory Therapy, Pharmacy and Care Team
Subjective
-
Date of Service: May 02, 2024
No major issues overnight, asked for anxiety med
Objective Data
-
Lab Results
04/30/24 20:23
05/02/24 03:17
PT Cancelled 05/02/24 06:00
INR Cancelled 05/02/24 06:00
APTT > 200 Sec (23.4-35.0) H* 05/02/24 03:17
Vital Signs
Vital Signs
Temp Pulse Resp BP Pulse Ox
97.9 F 84 18 114/79 98
05/02/24 03:07 05/02/24 03:11 05/02/24 03:07 05/02/24 03:11 05/02/24 03:07
CT Intake/Output/Weight
05/01/24 05/01/24 05/02/24
06:59 18:59 06:59
Intake Total 120 / 120 600 / 600
Balance 120 / 120 600 / 600
SaO2: 98 (RA)
Physical Exam
-
General: Awake, Oriented and AOx3
Cardiovascular: No Murmurs, No Rub and No Gallop
Respiratory: Clear
Incision: Clean, Dry, Intact and Dressing Intact
Extremities: No Edema
Data Reviewed
-
Lab Results: Results Reviewed
Medications: Active Meds Reviewed
Chest X-Ray: Report Reviewed and Image Reviewed
ECG: Report Reviewed and Image Reviewed
[2024-05-02 06:47] VITALS: BP 115/66
[2024-05-02] MEDS: VENTOLIN NEBULES 1.25 MG INH (07:20)
--- NOTE | 2024-05-02 07:42 | PTCARENOTE ---
Received patient this morning sitting oob in the chair, IV heparin infusing at 1200 units/hr, for repeat PTT at 1215. Patient awaiting PFT's scheduled for today.
[2024-05-02] MEDS: ASPIR LOW (ENTERIC COATED) 81 MG PO (08:09)
[2024-05-02] MEDS: MEDROL 4 MG PO (08:09)
[2024-05-02] MEDS: SENOKOT-S PO ×2 (08:09→08:27)
[2024-05-02] MEDS: TOPROL XL 75 MG PO (08:09)
[2024-05-02] MEDS: FLUSH (NSS) 1 FLUSH IV (08:23)
--- NOTE | 2024-05-02 08:34 | W.PN.CD ---
Today's Communication / Plan
-
Care as per pulmonary.
No new cardiac recommendations, will sign off. Patient should follow-up with Dr. Crawford.
Impression / Plan
-
BACKGROUND: 54M with single-vessel CAD and severe aortic stenosis who presents for AVR s/p mechanical AVR, single vessel CABG and left atrial appendage ligation (04/18/2024) presented with dyspnea.
Cane Flume Watcher: Dr. Crawford
Dyspnea
-due to brochospasm
-EKG & telemetry
-No acute findings on CXR
-He is below his presurgery weight without edema
-No pericardial effusion on echocardiogram
-Hemoglobin improved
-pulm suspects adult onset asthma
Severe aortic stenosis (bicuspid morphology) S/P AVR with 25 mm On-X mechanical valve by Dr. Darnell on 04/18/2024
CAD s/p CABG x 1 (in situ GRAY�LAD)
-TTE 04/30/2024: Mean gradient 11 mmHg
-On warfarin for mech valve, subtherapeutic, continue heparin drip
-INR goal: 2.0-3.0 the first 3 months and 1.5-2.0 thereafter
Abnormal troponin, likely nonischemic myocardial injury in the setting of recent cardiac surgery
-He is having no chest pain
Postoperative pericarditis
-On methylprednisolone
-Allergy to colchicine (rash)
HTN, chronic and stable
Dyslipidemia, LDL around 150 prior to initiation of atorvastatin, cont. atorvastatin
Obesity, BMI 34, he would benefit from weight loss
Former smoker, continue cessation recommended
SUBJECTIVE:
he is still sob when wheezing, no chest pain, no palpitations
DATA:
Transthoracic echocardiogram, 04/30/2024:
Fair image quality.
Normal biventricular size and systolic function without regional wall motion
abnormality.
Normal functioning 23 mmHg On-X mechanical valve, well seated, trace AI, mean
gradient 11 mmHg.
Mild MR.
No pericardial effusion.
This is the first transthoracic echocardiogram since recent AVR/CABGx1/PERLA
clipping.
Physical Exam
Vital Signs/Labs
Vital Signs
Temp Pulse Resp BP Pulse Ox
98.3 F 83 18 115/66 99
05/02/24 06:47 05/02/24 08:09 05/02/24 07:21 05/02/24 08:09 05/02/24 07:21
05/01/24 05/02/24 05/03/24
06:59 06:59 06:59
Actual Weight 107 kg
04/30/24 20:23
05/02/24 03:17
PT Cancelled 05/02/24 06:00
INR Cancelled 05/02/24 06:00
APTT > 200 Sec (23.4-35.0) H* 05/02/24 03:17
Magnesium 2.2 mg/dl (1.6-2.3) 05/02/24 03:17
TSH 3.42 uIU/ml (0.47-4.68) 04/30/24 20:23
04/30/24
20:23
[id number] Pept 1370
LAB Results
04/30/24 05/01/24 05/01/24
20:23 05:57 13:56
Troponin I 0.140 H* 0.165 H* 0.145 H*
Physical Exam
Constitutional: No acute distress
Cardiovascular: Rhythm & rate is regular, JVD pressure is normal, Systolic murmur absent and Diastolic murmur absent
Respiratory: Respiratory effort normal and Wheeze Present (Diffusely on both inspiration and expiration worse with expiration)
GI: Soft
Neuro/Psych: AO x 3
Data Reviewed
-
Date of Service: May 02, 2024
Medical Decision Making: Review of Case with other Provider (CTPA, no new cardiac recommendations would follow-up with typical cardiology, will sign off)
[2024-05-02] MEDS: COUMADIN 5 MG PO (08:59)
--- NOTE | 2024-05-02 09:25 | W.PN.PUL3 ---
Today's Communication / Plan
-
Ding well today, wheezing noted but this is likely due to better air movement
PFT showing mild restriction, likely related to postop course/BMI
Reasonable to treat for asthma, start symbicort high dose/xopenex PRN, to continue at discharge
Outpatient pulmonary FU arrangement, we discussed need for sleep study as well, this was reviewed in detail with patient and his family member at bedside
Ok with discharge planning per team
Assessment
-
Patient is a 54-year-old obese male with a history of hypertension, hyperlipidemia, bicuspid aortic valve with severe aortic stenosis s/p recent CAB and aortic valve replacement 04/18/2024 presenting wtih acute onset of SOB/wheezing over weekend.
He denies any known triggers, not related to exertion. Occasionally has cough/mucus, clear sputum. Denies history of known lung disease. Lifelong nonsmoker, in the past few years picked up cigars, 2-3 times per week. On arrival, he was not
notably hypoxemia. Chest imaging negative thus far. We are consulted for eval.
Acute SOB/wheezing
Elevated trops, likely nonMI related
Suspect UVALDO due to BMI/body habitus
Conditions present prior to admission:
CAD and severe aortic stenosis status post X 1-GRAY-LAD, AVR-23 mm mechanical prosthesis, left atrial appendage ligation 04/18/24
Obesity, BMI 34.
Hyperlipidemia
HTN
Nephrolithiasis.
Scoliosis.
Plan
No oxygen was needed on admission, currently saturating >90% on RA
No history of use in past
Prior history of lung disease is not noted
Lifelong nonsmoker, recent use of cigars but not enough to cause/warrant lung disease risk
Family history is significant for asthma, his daughter.
Suspect patient has adult onset asthma
CXR/CT obtained indicating NAD, neg for PE
Will obtain baseline PFT--reviewed showing mild restriction but will treat like asthma
Add symbicort/xopenex, can continue at discharge
Will arrange OP FU for next steps
Currently on albuterol, pending results of PFT can add ICS
Denies history of prior childhood asthma history
Elevated trops noted, likely non-mi related
CTS following
Prior ECHO results are reviewed indicating normal function
Following trend
Weight loss measures recommended
Obesity likely contributing to respiratory symptoms
Suspect UVALDO, outpatient PSG recommended
Will need outpatient pulmonary evaluation in our office for PFTs and 6MWT
Reviewed with patient, can continue w/u there if all imaging negative
Discharge planning per team
Diagnostic Data
CXR 05/01/24-1. Clear lungs. 2. No significant change compared to prior study.
Chest x-ray 04/18/2024-endotracheal tube tip above the segun, low lung volumes and probable mild basilar subsegmental atelectasis, no pneumothorax
CT Chest 04/30/24-1. No evidence of pulmonary embolism or thoracic aortic dissection.
2. Clear lungs.
3. Trace pericardial fluid and air, likely postoperative. No significant pericardial effusion.
CT chest abdomen and pelvis 04/11/2024-severe calcification of the aortic valve, contracted gallbladder, scoliosis
IntraOp JADIEL-EF 65%
Catheterization-cardiac 04/04/2024-critical aortic stenosis with mean gradient 65, EF 61%, single-vessel CAD with 80% mid LAD stenosis
Reports and relevant images were personally reviewed.
Total time spent on this encounter __51__ includes review of history, physical exam, medications, laboratory data, personal review of imaging, extensive review of outpatient records, discussion with care team and respiratory therapy.
Subjective Data
-
Date of Service:
Date of Service: May 02, 2024
Chief Complaint: Pulmonary Follow Up
Subjective:
No events ON, stable on RA
Wants to go home, no new complaints
Objective Data
Data Reviewed
Vital Signs / I&O / Oxygen:
Vital Signs
Temp Pulse Resp BP Pulse Ox
98.3 F 83 18 115/66 99
05/02/24 06:47 05/02/24 08:09 05/02/24 07:21 05/02/24 08:09 05/02/24 07:21
Intake and Output
05/01/24 05/02/24 05/03/24
06:59 06:59 06:59
Intake Total 120 / 120 600 / 600
Balance 120 / 120 600 / 600
SaO2 99
Physical Exam
General: Comfortable and Other (NAD)
HEENT: Normocephalic, Anicteric and Moist Mucous Membranes
Cardiovascular: S1-S2 and Regular Rhythm
Respiratory: Wheeze and Non-Labored Respirations
GI: Soft, Non Distended and Non Tender
Neurology: Awake, Alert, Oriented and No Motor Deficits
Skin: Warm, Dry and Good Color
Labs/Micro/Reports
Lab Data
04/30/24 20:23
05/02/24 03:17
Laboratory Results
05/01/24 05/01/24 05/02/24
13:56 20:22 03:17
PT 18.3 H 21.7 H
INR 1.54 1.91
APTT 95.7 H 69.3 H > 200 H*
05/02/24
06:00
PT Cancelled
INR Cancelled
APTT
Microbiology
05/01/24 01:04 Nasal Swab Influenza Types A & B (KARINA) - Final
Negative for Influenza A & B, NAAT
Negative results must be combined with clinical observations
and patient history.
Nucleic Acid Amplification test (NAAT)performed on the
TM platform.
--- NOTE | 2024-05-02 09:47 | PTCARENOTE ---
Patient given coumadin 5mg PO and IV heparin infusion d/c'd as per order. Will recheck INR at 1400.
[2024-05-02] MEDS: VENTOLIN NEBULES INH (11:47)
--- NOTE | 2024-05-02 11:47 | PTCARENOTE ---
Patient returned from PFT's, for INR at 1400 and possible discharge home after.
[2024-05-02 11:50] VITALS: BP 112/77
[2024-05-02] MEDS: SYMBICORT 160/4.5 MCG INHALER 2 PUFF INH (12:53)
--- NOTE | 2024-05-02 13:37 | CM ---
Reviewed chart. Met with Mr. Landis to review discharge plans. He states he is feeling better and maybe able to go home soon. Telephone call to his insurance to check on getting his blood work draw at a hospital and not at [facility]. He can get his
lab work done at a hospital lab if he gets a referral and authorization from his PCP. He has met his out of pocket cost, so he will not have a deductible. Update him regarding above. Prior to admission he resides with his spouse in a two story e
home with two steps to enter. Prior to admission he was independent with ambulation and adls. He does not have any DME in the home. He has a prescription plan. Medical work-up in progress. The discharge plan is to return home with his spouse when
medically stable.
[2024-05-02 14:32] LABS: INR 2.12; PT 23.6 Sec (11.4-14.6)
[2024-05-02 15:01] VITALS: BP 102/66
--- NOTE | 2024-05-02 15:17 | W.[place]-PDMP ---
[place]-PD[place]
-
Checked the [place]- Prescription Drug Monitoring Program website, no red flags identified; safe to proceed with prescription.
--- NOTE | 2024-05-02 15:31 | W.DCSUMMARY ---
Discharge Summary
Discharge Data
Date of Admission: 04/30/24
Date of Discharge: 05/02/24
-
Pending Results: No
Hospital Course
Primary care physician:
Dr. Augusta Roberson
Outpatient learning facilitator:
Dr. Drew Crawford,
Inpatient consultants:
Pulmonary: Dr. Faby Soto MD.
Cardiology: Dr. Kd Ortiz MD.
Procedures:
1. Status post Surgical aortic valve replacement with a 23 millimeter mechanical prosthesis,
Coronary artery bypass grafting x 1 (in situ left internal mammary artery to left anterior descending coronary artery),
Left atrial appendage ligation with [address] Cosme Darnell MD. on 04/18/24
Primary Diagnosis:
1. Chest pain with exertion
2. Severe aortic stenosis
3. Severe aortic insufficiency
4. Single-vessel coronary artery disease
5. Status post surgical aortic valve replacement with a [id number] mechanical prosthesis, coronary artery bypass grafting x 1 (left internal mammary artery�left anterior descending coronary artery), left atrial appendage ligation with [address] Cosme Darnell MD. on 04/18/24
6. History of back pain
7. History of scoliosis
8. Fatigue
9. Hypertension
10. Hyperlipidemia
11. History of kidney stones
12. Degenerative joint disease
13. Degenerative disc disease
14. Osteoarthritis
15. Postoperative shortness of breath
16. Postoperative subtherapeutic INR requiring readmission
Secondary Diagnoses:
1. Same as the above
HPI:
Patient is an extremely pleasant 54-year-old male well-known to the cardiothoracic surgery service having previously undergone aortic valve replacement with a number 23 mechanical prosthesis, coronary artery bypass grafting x 1 (left internal
mammary artery�left anterior descending coronary artery), left atrial appendage ligation with [address] Cosme Darnell MD. on 04/18/24. Patient's postoperative course was uneventful for acute events. He was discharged home on postoperative day
5 on 04/23/2024. On 04/30/2024 he presented to [facility]'s emergency department with shortness of breath, subtherapeutic INR of 1.52, and troponin I of 1.40. Patient was admitted to [facility] under the service of Dr. Aguiar
MD. Carie for Coumadin/heparin bridge and further management.
Hospital course:
As stated above, the patient presented to [facility]'s emergency department on 04/30/2024 with subtherapeutic INR of 1.52. He was given 3 mg of Coumadin, and repeat INR on 05/01 was still subtherapeutic at 1.58. Patient also presented with
shortness of breath and wheezing. He was formally admitted on 05/01/2024 under the service of Cardiothoracic Surgery, attending physician Dr. Cosme Darnell MD., and consults to pulmonary and cardiology were placed. Patient also had a troponin I of
1.40. This was trended and monitored via cardiology. Patient was chest pain-free. In the interim he was placed on a heparin drip for bridging until his INR was therapeutic with Coumadin. He was given 7.5 mg of Coumadin on 05/01/2024 for an INR
of 1.54. He was seen by pulmonary, Dr. Faby Soto and started on Symbicort and Xopenex inhalers. On 05/02/2024 the patient's morning INR was 1.91. He was given 5 mg of Coumadin and his INR was later rechecked at afternoon resulting in a
therapeutic range of 2.12. Heparin drip was discontinued. Patient's case was discussed with attending physician and he was medically cleared to be discharged to home on 05/02/2024.
In regards to the patient's Coumadin and PT/INR: He should have recurring PT/INR draws. Keep INR 2.0-3.0 for the first 90 days. Take warfarin 5 mg daily every evening as prescribed. Please send the results of PT/INR's to the office of Dr. Aguiar
Darnell, MD. and Cardiology Dr. Drew Crawford DO. Patient's next dose of warfarin will be 05/03/2024. Visiting nurses will check the patient's INR on 05/03/2024.
Home medication changes:
Please pay attention to the following medication changes:
Take Alprazolam 0.5 mg HS PRN-anxiety
Take Symbicort 160-4.5 mcg Hfa Inhaler, 2 puffs INH BID-SOB/MILLARD
Take Levalbuterol 45 mcg/actuation Hfa Inhaler, 2 puffs Q4H PRN-SOB/MILLARD
Take Toprol XL 75 mg daily (1.5 tabs)-Hypertension, s/p AVR/CABG/LAAE
Take Warfarin 5 mg daily in evening-oral anticoagulation with mechanical aortic valve
Please stop taking the following medications:
Stop taking Warfarin 1 mg daily and replace with Warfarin 5 mg daily
Stop taking Toprol XL 50 mg daily and replace with Toprol XL 75 mg daily (1.5 tabs)
Recurring PT/INR. Keep INR 2.0-3.0 for the first 90 days. Take Warfarin 5 mg daily every evening. Please send results to the office of Dr. Cosme Darnell MD. and Cardiology Dr. Drew Crawford DO. Next dose of Warfarin will be Wednesday05/03/24.
Visiting nurse will check your INR Wednesday05/03/24.
Discharge Plan
-
Patient Disposition: Home (Routine Discharge)
Discharge Diagnosis/Procedures: s/p Surgical aortic valve replacement with a 23mm mechanical prosthesis,
Coronary artery bypass grafting x 1 (in situ GRAY to LAD),
Left atrial appendage ligation with [address] Cosme Darnell MD. on 04/18/24
Condition: Good
Diet: Low Fat, Low Cholesterol and Low Sodium
Activity: No strenuous activity
Driving Restrictions: Not until seen by your Dr
Bathing Restrictions: OK to Shower
Blood Work: Recurring PT/INR. Keep INR 2.0-3.0 for the first 90 days. Take Warfarin 5 mg daily every evening. Please send results to the office of Dr. Cosme Darnell MD. and Cardiology Dr. Drwe Crawford DO. Next dose of Warfarin will be
Wednesday05/03/24. Visiting nurse will check your INR Wednesday05/03/24.
Other Services: Cardiac Rehab
Wound Care: -Shower daily. Use soap & water.
-No lotions, creams or powders on incision area.
Specialty Instructions: Weigh Daily- Call MD for wt gain/loss 3 lbs overnight/5 lbs in 1 week
Activity Restrictions/Additional Instructions:
ACTIVITY:
-No strenuous activity: no heavy lifting, pushing, pulling anything over 15 pounds for one month
-continue to use stairs as tolerated
DRIVING RESTRICTIONS:
-No driving for one month or until approved by your surgeon
WOUND CARE:
-Shower daily. Use soap & water.
-No lotions, creams or powders on incision area.
DIET:
-continue a low fat/low cholesterol diet.
-IF you are diabetic, continue carb controlled diet.
CARDIAC REHAB:
-Please make appointment to start in 5-6 weeks with your local hospital program. (See Cardiac Rehabilitation Discharge Booklet).
SPECIALTY INSTRUCTIONS:
-Weigh yourself daily. Call your physician for any weight gain/loss of 3 lbs overnight or 5 lbs in one week.
-REPORT any clicking noise or uneven appearance of your sternum to your surgeon immediately.
-If you smoke, you are instructed to quit. The [place] smoking hotline phone number is [phone]
Referrals:
Faby Soto DO [Active] - in four to six weeks (sleep eval, PFT)
Purvi Bernard MD [Family Provider] -
Additional Discharge Medication Instructions: Please pay attention to the following medication changes:
Take Alprazolam 0.5 mg HS PRN-anxiety
Take Symbicort 160-4.5 mcg Hfa Inhaler, 2 puffs INH BID-SOB/MILLARD
Take Levalbuterol 45 mcg/actuation Hfa Inhaler, 2 puffs Q4H PRN-SOB/MILLARD
Take Toprol XL 75 mg daily (1.5 tabs)-Hypertension, s/p AVR/CABG/LAAE
Take Warfarin 5 mg daily in evening-oral anticoagulation with mechanical aortic valve
Please stop taking the following medications:
Stop taking Warfarin 1 mg daily and replace with Warfarin 5 mg daily
Stop taking Toprol XL 50 mg daily and replace with Toprol XL 75 mg daily (1.5 tabs)
Recurring PT/INR. Keep INR 2.0-3.0 for the first 90 days. Take Warfarin 5 mg daily every evening. Please send results to the office of Dr. Cosme Darnell MD. and Cardiology Dr. Drew Crawford DO. Next dose of Warfarin will be Wednesday05/03/24.
Visiting nurse will check your INR Wednesday05/03/24.
Prescriptions:
New
metoprolol succinate 50 mg Tablet Extended Release 24 Hr
75 mg PO DAILY Qty: 60 1RF
Rx Instructions:
Take 75 mg, 1.5 tabs daily
budesonide-formoterol [Symbicort] 160-4.5 mcg/actuation Hfa Aerosol Inhaler
2 puff inhalation R BID Qty: 10.2 0RF
Rx Instructions:
Please contact Pulmonary, Dr. Alvarado for refills
levalbuterol tartrate [Xopenex HFA] 45 mcg/actuation Hfa Aerosol Inhaler
2 puff inhalation R Q4HPRN PRN (Reason: SOB,WHEEZE,COUGH) Qty: 15 0RF
Rx Instructions:
Please obtain refills via pulmonary, Dr. Xavier Alvarado MD.
alprazolam 0.5 mg Tablet
0.5 mg PO HS PRN (Reason: anxiety) Qty: 15 0RF
Rx Instructions:
Please contact primary care provider for refills
warfarin 5 mg tablet
5 mg PO DAILY Qty: 90 0RF
Rx Instructions:
Take 5 mg (1 tab) daily in evening. Goal INR 2.0-3.0 for the first 90 days.
Continued
aspirin 81 mg Tablet,Chewable
81 mg PO DAILY
atorvastatin 40 mg tablet
40 mg PO DAILY Qty: 90 3RF
acetaminophen 325 mg Tablet
650 mg PO Q6HPRN PRN (Reason: mild pain,headache,temp >101F ) Qty: 0 0RF
oxycodone 5 mg Tablet
5 mg PO Q6HPRN PRN (Reason: moderate to severe pain) Qty: 14 0RF
Mucinex Cough-Chest Congest HB 10-200 mg Capsule
1 tab-cap PO Q6HPRN PRN (Reason: wheeezing)
methylprednisolone 4 mg Tablet
4 mg PO DAILY
Patient Comments:
taper dose - 4 mg due tomorrow 05/01/24
melatonin 10 mg Tablet
10 mg PO HS
sennosides-docusate sodium 8.6-50 mg tablet
1 tab PO Q48H
Discontinued
metoprolol succinate [Toprol XL] 50 mg tablet extended release 24 hr
50 mg PO DAILY Qty: 30 1RF
Patient Comments:
take with 25mg = 75mg daily
warfarin 1 mg tablet
1 mg PO DAILY Qty: 90 1RF
metoprolol succinate 25 mg Tablet Extended Release 24 Hr
25 mg PO DAILY
Rx Instructions:
take with 50mg = 75mg daily
Care Plan Goals
Care Plan Goals:
Problem: Readiness for enhanced knowledge related to diagnosis and treatment plan
Goal: Understand your diagnosis and treatment plan needs, including medications if applicable.
Instructions: Know your diagnosis, underlying causes and treatment plan options, including medications if applicable. Consult with your health care team to learn about your diagnosis and treatment plan, including medications if applicable.
Discharge Date and Time
Print Language: PUERTO RICAN
[2024-05-02] MEDS: LIPITOR 40 MG PO (16:14)
--- NOTE | 2024-05-02 16:37 | PTCARENOTE ---
INR 2.12, patient seen by CT surgery PA and is ok for discharge. Reviewed discharge instructions with the patient and his and they state their understanding. Patient discharged home with his . CT transitional nurse to draw INR tomorrow.
== END 2024-05-02 16:34 | disposition home or self-care (01) | DRG 202 ==
LOC: IVU 23:03
PROVIDERS: Clinical Nurse Specialist Acute Care; Nurse Practitioner Gerontology; ADMITTING PHYSICIAN Thoracic Surgery (Cardiothoracic Vascular Surgery); ATTENDING PHYSICIAN Thoracic Surgery (Cardiothoracic Vascular Surgery); CONSULT PHYSICIAN Internal Medicine; EMERGENCY PHYSICIAN Student in an Organized Health Care Education/Training Program; FAMILY PHYSICIAN Family Medicine
DX: J45.909 Unspecified asthma, uncomplicated (principal); I31.9 Disease of pericardium, unspecified; I5A Non-ischemic myocardial injury (non-traumatic); I25.10 Atherosclerotic heart disease of native coronary artery without angina pectoris; I10 Essential (primary) hypertension; E78.00 Pure hypercholesterolemia, unspecified; I35.0 Nonrheumatic aortic (valve) stenosis; G47.33 Obstructive sleep apnea (adult) (pediatric); D64.9 Anemia, unspecified; E66.812 Obesity, class 2; Z68.34 Body mass index [BMI] 34.0-34.9, adult; Z11.52 Encounter for screening for COVID-19; Z79.82 Long term (current) use of aspirin; Z79.899 Other long term (current) drug therapy; Z79.01 Long term (current) use of anticoagulants; Z87.891 Personal history of nicotine dependence; Z88.8 Allergy status to other drugs, medicaments and biological substances; Z95.2 Presence of prosthetic heart valve; Z95.1 Presence of aortocoronary bypass graft
CPT/HCPCS: 94727; 94729; 71045; 71046; 71275; 80048; 80053; 83690; 83735; 83880; 84443; 84484; 85025; 85610; 85730; 87502; 87811; 93005; 93306; 94060; 94640; 96374; 99291; Q9967

== ENCOUNTER 2024-06-02 10:57 | Outpatient (RCR) | payer OTHER, SELFPAY | END 2024-06-02 23:59 | disposition home or self-care (01) | LOC: CRHB 10:57 | PROVIDERS: ATTENDING PHYSICIAN Internal Medicine Cardiovascular Disease | DX: I25.10 Atherosclerotic heart disease of native coronary artery without angina pectoris (principal); Z95.1 Presence of aortocoronary bypass graft; Z95.4 Presence of other heart-valve replacement | CPT/HCPCS: 93797; 93798 ==

== ENCOUNTER 2024-06-30 14:29 | Outpatient (RCR) | payer OTHER, SELFPAY | END 2024-06-30 23:59 | disposition home or self-care (01) | LOC: CRHB 14:29 | PROVIDERS: ATTENDING PHYSICIAN Internal Medicine Cardiovascular Disease | DX: Z95.4 Presence of other heart-valve replacement (principal); I25.10 Atherosclerotic heart disease of native coronary artery without angina pectoris (principal); Z95.1 Presence of aortocoronary bypass graft | CPT/HCPCS: 93797; 93798 ==

== ENCOUNTER → 2024-07-13 10:37 | Outpatient (REF) | payer OTHER, SELFPAY | LOC: DHSLP 10:37 | PROVIDERS: ATTENDING PHYSICIAN Internal Medicine Critical Care Medicine; FAMILY PHYSICIAN Nurse Practitioner | DX: G47.33 Obstructive sleep apnea (adult) (pediatric) (principal) | CPT/HCPCS: 95800 ==